=== PATIENT | male | born 1955 | race Caucasian/White ===

== ENCOUNTER → 2017-01-31 | Outpatient (CLI) | payer OTHER ==
[~2017-01-31] MED LIST: ALBUAER2 INH; ALT5 PO; CARV6.252 PO; CLC100 PO; CLOP1TAB15 PO; CPR500 PO; DUTA0.5C PO; FLNIN NAE; LUTE6TAB PO; METH-307 PO; MRLP17 PO; MTR500 PO; MULT-506 PO; NTRSL3 UT; NXM/40 PO; ROSU20TA PO; SILD100T PO; SNG10 PO; SYMIN/8045 INH; TAMS0.4C59 PO; VICODIN PO; ZNTT/150 PO
--- NOTE | 2017-01-31 19:24 | DIAGNOSTIC IMAGING REPORT ---
RIGHT HIP UNILATERAL 2 VIEWS CLINICAL HISTORY: Right hip pain COMPARISON: None. DISCUSSION: There are postsurgical changes are prior right hip arthroplasty. There are small foci of heterotopic ossification superior to the greater trochanter and femoral neck. No acute fractures or dislocations are visualized. No destructive lesions are evident. IMPRESSION: Postsurgical change. No fractures, dislocations, or destructive lesions are visualized Electronically signed by: José Merrill M.D. 01/31/2017 7:23 PM Dictated Date/Time: 01/31/2017 7:22 PM
== END | disposition home or self-care (01) ==
LOC: C.RAD 19:05
PROVIDERS: ATTEND Internal Medicine
DX: M25.551 Pain in right hip (principal)

== ENCOUNTER → 2017-02-15 | Outpatient (CLI) | payer OTHER | END | disposition home or self-care (01) | LOC: C.LABPBG 14:49 | PROVIDERS: ATTEND Orthopaedic Surgery | DX: M25.551 Pain in right hip (principal); Z96.641 Presence of right artificial hip joint ==

== ENCOUNTER → 2017-07-05 | Outpatient (CLI) | payer OTHER | END | disposition home or self-care (01) | LOC: C.LAB1850 15:14 | PROVIDERS: ATTEND Orthopaedic Surgery | DX: M25.551 Pain in right hip (principal) ==

== ENCOUNTER → 2017-07-23 | Outpatient (CLI) | payer OTHER ==
--- NOTE | 2017-07-23 17:48 | DIAGNOSTIC IMAGING REPORT ---
BONE SCAN 3 PHASE LIMITED CLINICAL HISTORY: R HIP PAIN hip pain TECHNIQUE: Multiphase evaluation following the administration of 26 mCi technetium 99m MDP. COMPARISON STUDY: None FINDINGS: The vascular flow component of the study is unremarkable. There are no areas of significant hyperemia. Blood pool images are also unremarkable with activity characteristics similar. Delayed or static images of the pelvis and hips show no abnormal activity characteristics of the right hip prosthetic or surrounding bony structures. There are findings of minimal degenerative activity of the sacroiliac joints. IMPRESSION: Negative study The above report was generated using voice recognition software. It may contain grammatical, syntax or spelling errors. Electronically signed by: Aime Mcfarlane M.D. 07/23/2017 5:46 PM Dictated Date/Time: 07/23/2017 5:44 PM
== END | disposition home or self-care (01) ==
LOC: C.NUCL 12:50
PROVIDERS: ATTEND Orthopaedic Surgery
DX: M25.551 Pain in right hip (principal)

== ENCOUNTER → 2017-09-24 | Outpatient (CLI) | payer OTHER ==
--- NOTE | 2017-09-24 19:55 | DIAGNOSTIC IMAGING REPORT ---
MRI OF THE RIGHT HIP WITHOUT CONTRAST CLINICAL HISTORY: Anterior right hip pain with resisted flexion. COMPARISON STUDY: Pelvis radiograph February 20, 2017 and 3 phase bone scan July 23, 2017. TECHNIQUE: Utilizing a 1.5 Krista magnet and dedicated coil, multiplanar, multiecho imaging of the right hip was performed without intravenous or intraarticular contrast. FINDINGS: Evaluation of the hips is significantly compromised given susceptibility artifact from bilateral hip resurfacing. Evaluation of the adjacent soft tissues is essentially nondiagnostic. No significant marrow edema or suspicious marrow replacement is identified on this examination. There is increased fluid within the bilateral trochanteric bursa, greater on the left. No pelvic lymphadenopathy or pelvic fluid collection is identified on this examination. This extensive sigmoid diverticulosis without evidence for acute diverticulitis by MRI. Musculature adjacent to the hips is unremarkable although suboptimally assessed given artifact. IMPRESSION: 1. Exam significantly compromised by susceptibility artifact from the surgical hardware. 2. Increased fluid within the bilateral trochanteric bursa, greater on the left. No additional abnormalities identified on this exam. Electronically signed by: Manuel Elizalde M.D. 09/24/2017 7:53 PM Dictated Date/Time: 09/24/2017 5:25 PM
== END | disposition home or self-care (01) ==
LOC: C.MRIBC 15:36
PROVIDERS: ATTEND Orthopaedic Surgery
DX: M25.551 Pain in right hip (principal)

== ENCOUNTER → 2017-10-26 | Outpatient (CLI) | payer OTHER | END | disposition home or self-care (01) | LOC: C.LABPBG 14:33 | PROVIDERS: ATTEND Orthopaedic Surgery | DX: Z96.641 Presence of right artificial hip joint (principal) ==

== ENCOUNTER → 2017-11-07 | Outpatient (CLI) | payer OTHER ==
[~2017-11-07] MED LIST changes: +ASPI81TA28 PO; +DOCU-94 PO; +FLNIN/ NAE; +ONDA4TAB65 PO; +PANT40TA2 PO; +POLY335019 PO; +RAMI5CAP PO; +RANI150T85 PO; +ROSU20TA24 PO; +TAMS0.4C38 PO; +VNTHFA/IN INH; -ZNTT/150 PO
--- NOTE | 2017-11-07 18:12 | DIAGNOSTIC IMAGING REPORT ---
MRI OF THE LUMBAR SPINE WITHOUT IV CONTRAST CLINICAL HISTORY: Right lower extremity radiculopathy. COMPARISON STUDY: Radiographs of the lumbar spine dated 02/20/2017. MRI of the lumbar spine dated 03/22/2017. TECHNIQUE: MRI of the lumbar spine is performed utilizing various T1 and T2-weighted sequences in the axial and sagittal planes. IV contrast was not administered for this examination. FINDINGS: Lumbar spine: Vertebral body height is maintained throughout the lumbar spine. Minimal retrolisthesis is seen at L1-L2 and L2-L3. Alignment is otherwise preserved. There is straightening of the lumbar lordosis with mild reversal centered at L2-L3. Anterior osteophytes are seen throughout. The transverse and spinous processes are intact. There is no evidence of spondylolysis. No destructive bony lesion is seen. Advanced chronic degenerative endplate change is seen at L2-L3. Mild degenerative endplate edema is noted at L5-S1. Intervertebral discs: Degenerative disc desiccation and loss of height are seen throughout the lumbar spine. Loss of height is severe at L1-L2 and L2-L3. Loss of height is moderate at the remaining lumbar levels. Spinal cord: The partially imaged spinal cord is normal in morphology and signal intensity. The conus medullaris terminates at the level of L1. The nerve roots of the cauda equina are normal in morphology. L1-L2: There is a broad-based posterior disc bulge. There is no significant acquired compromise of the central canal. The disc bulge is eccentric to the right and causes severe right-sided subarticular stenosis. This may impinge on the exiting right L1 nerve root. There is only mild left-sided subarticular stenosis. The neural foramina are patent. L2-L3: The central canal and neural foramina are patent. Mild facet arthropathy is of no consequence. L3-L4: There is broad-based posterior disc bulge with annular fissure. In conjunction with hypertrophy of the ligamentum flavum, there is mild central canal stenosis at this level. The minimum AP canal diameter measures 8.5 mm. There is bilateral subarticular stenosis. This may impinge on the exiting left L3 nerve root. The disc bulge likely abuts the transiting bilateral nerve roots. Facet arthropathy causes mild left-sided neural foraminal stenosis. L4-L5: There is a small posterior disc bulge with annular fissure eccentric to the right. There is no significant acquired central canal stenosis. There is moderate right-sided subarticular stenosis with possible impingement on the exiting right L4 and the transiting right L5 nerve roots. The disc bulge may abut the transiting left L5 nerve root. Facet arthropathy causes minimal bilateral neural foraminal stenosis. L5-S1: There is a disc bulge eccentric to the right. This causes severe right-sided subarticular stenosis and impinges on the exiting right L5 nerve root. There is mild left-sided subarticular stenosis and this may also abut the exiting left L5 nerve root. There is no significant central canal stenosis. The neural foramina are patent. Sacrum: The visualized sacrum is normal in morphology and signal intensity. Soft tissues: The paraspinous soft tissues are within normal limits. The retroperitoneal structures are grossly normal but incompletely assessed. IMPRESSION: 1. Multilevel lumbosacral spondylosis as above. See discussion for detailed level by level analysis. These findings are overall similar to the 03/22/2017 examination. 2. Degenerative disc disease as above. No destructive bony process is seen. Dictated: 11/07/2017 5:33 PM Transcribed: 11/07/2017 6:12 PM [email or web address] Electronically signed by: Zen Stevens M.D. 11/07/2017 6:43 PM Dictated Date/Time: 11/07/2017 5:33 PM
== END | disposition home or self-care (01) ==
LOC: C.MRI 16:41
PROVIDERS: ATTEND Orthopaedic Surgery
DX: M51.17 Intervertebral disc disorders with radiculopathy, lumbosacral region (principal); Z96.641 Presence of right artificial hip joint

== ENCOUNTER 2017-12-08 20:35 | Inpatient (IN) | payer OTHER ==
[~2017-12-08] VITALS: Ht 177.8 cm; Wt 92.5 kg
[~2017-12-08 20:35] MED LIST changes: -ASPI81TA28 PO; -DOCU-94 PO; -FLNIN/ NAE; -ONDA4TAB65 PO; -PANT40TA2 PO; -POLY335019 PO; -RAMI5CAP PO; -RANI150T85 PO; -ROSU20TA24 PO; -TAMS0.4C38 PO; -VICODIN PO; -VNTHFA/IN INH; +ZNTT/150 PO
[2017-12-08] MEDS ORDERED: ONDANSETRON INJ 2 MG/ML 2 ML VIAL ONE (21:06)
--- NOTE | 2017-12-08 21:16 | EMERGENCY ROOM VISIT NOTE ---
History Report prepared by Isabelle: Guanaco Maldonado Under the Supervision of: Dr. Kim Blackwood D.O. First contact with patient: 20:51 Chief Complaint: VOMITING Stated Complaint: VOMITING, ABD PAIN History of Present Illness The patient is a 62 year old male who presents to the Emergency Room with complaints of a worsening illness that started yesterday. He states that he started with explosive diarrhea that would not stop at times. The patient says he had been dry heaving, but started vomiting "dark green" last night. The patient notes no blood in his vomit or diarrhea. He adds that he has been having constant abdominal pain, and per the patient's , the patient has had a more distended abdomen than usual. The patient denies any fevers, chills, back pain, new urinary symptoms, rashes or sores. He notes no recent sick contacts or travels. No recent change in medications and no change in diet. The patient adds that he had a heart catheterization a week ago, however no stents were placed. The patient notes that his diarrhea has not been nearly as bad today. Source of History: patient, spouse/significant other Onset: Yesterday Position: other (global - illness) Timing: worsening Associated Symptoms: + nausea, + vomiting, + abdominal pain (and distension) , + diarrhea, No fevers, No chills, No back pain, No urinary symptoms (any new) , No rash Review of Systems See HPI for pertinent positives & negatives. A total of 10 systems reviewed and were otherwise negative. Past Medical & Surgical Medical Problems: (1) Diverticulitis of colon with bleeding (2) Pulmonary embolism Surgical Problems: (1) Stented coronary artery Family History Diabetes mellitus Social History Smoking Status: Never Smoker Drug Use: none Marital Status: Housing Status: lives with family Occupation Status: unemployed Current/Historical Medications Scheduled Aspirin (Aspirin Ec), 81 MG PO DAILY Budesonide/Formoterol Fumarate (Symbicort 80/4.5 Inhaler), 3 PUFFS INH DAILY Carvedilol (Coreg), 6.25 MG PO QAM Carvedilol (Coreg), 12.5 MG PO QPM Clopidogrel (Plavix), 75 MG PO QPM Esomeprazole Magnesium (Nexium), 40 MG PO DAILY Fluticasone Propionate (Fluticasone Propionate), 2 SPRAYS [place] DAILY Montelukast Sod (Montelukast Sodium), 10 MG PO DAILY Multivitamin (Multivitamin), 1 TAB PO DAILY Pantoprazole (Pantoprazole Sodium), 40 MG PO DAILY Ramipril (Ramipril), 5 MG PO DAILY Ranitidine (Zantac), 150 MG PO QPM Rosuvastatin Calcium (Rosuvastatin Calcium), 20 MG PO QPM Tamsulosin Hcl (Flomax), 0.4 MG PO DAILY Scheduled PRN Albuterol Hfa (Ventolin Hfa), 2 PUFFS INH Q6H PRN for SOB/Wheezing Docusate Sodium (Colace), 100 MG PO BID PRN for Constipation Methocarbamol (Robaxin), 750 MG PO BID PRN for Muscle Spasm Nitroglycerin (Nitrostat), 0.3 MG UT UD PRN for Chest Pain Polyethylene Glycol 3350 (Miralax), 17 GM PO BID PRN for Constipation Sildenafil Citrate (Viagra), 100 MG PO UD PRN for When Needed [Vicodin 5/500MG], 1.5 TABS PO BID PRN for Pain Allergies Coded Allergies: Meperidine (Verified Allergy, Unknown, NAUSEA AND VOMITING, 03/14/15) Sulfa Drugs (Verified Allergy, Unknown, THROAT SWELLING, 03/14/15) CAN TOLERATE FLOMAX PER PT Tiotropium (Unverified Allergy, Unknown, LARYNGITIS AFTER DRAG SEINER USE, ) Typhoid Vaccines (Verified Allergy, Unknown, fevers, 03/14/15) Physical Exam Vital Signs Date Time Temp Pulse Resp B/P (MAP) Pulse Ox O2 Delivery O2 Flow Rate FiO2 12/09/17 00:00 88 20 129/89 95 Room Air 12/08/17 22:17 36.4 91 20 169/96 95 Room Air 12/08/17 20:39 36.4 119 20 132/88 96 Room Air Physical Exam GENERAL: alert, ill appearing, well nourished, no distress EYE EXAM: normal conjunctiva, PERRL and EOM's grossly intact OROPHARYNX: no exudate, no erythema, lips, buccal mucosa, and tongue normal and mucous membranes are dry NECK: supple, no nuchal rigidity, no adenopathy, non-tender LUNGS: Clear to auscultation. Normal chest wall mechanics HEART: no murmurs, S1 normal and S2 normal ABDOMEN: abdomen mildly distended, mildly tympanitic to percussion, generalized tenderness, normo-active bowel sounds, no masses, no rebound or guarding. BACK: Back is symmetrical on inspection and there is no deformity, no midline tenderness, no CVA tenderness. SKIN: no rashes and no bruising UPPER EXTREMITIES: upper extremities are grossly normal. LOWER EXTREMITIES: No pitting edema. NEURO EXAM: Normal sensorium, cranial nerves II-XII grossly intact, normal speech, no gross weakness of arms, no gross weakness of legs. Medical Decision & Procedures ER Provider Diagnostic Interpretation: Radiology results have been interpreted by the radiologist and reviewed by me. CHEST AND ABDOMEN 2 VIEWS HISTORY: Nausea. Vomiting. Diarrhea. COMPARISON: Chest 11/24/2016. Abdomen and pelvis CT 09/30/2015. FINDINGS: Stable left basilar linear densities suggesting scarring or subsegmental atelectasis. The lungs are otherwise clear. The heart is normal in size. No pleural effusions. No pneumothorax. No renal or ureteral calculi. Postoperative changes within the bilateral hips. There are 2 similar-appearing round densities within the right mid abdomen and right lower quadrant. This could be due to medication ingestion. There is a small amount of residual barium within the right colon demonstrating a few diverticula. A few mildly dilated gas-filled loops of small bowel are seen within the abdomen. There is also gas within the colon. Small bowel loops measure up to 4.3 cm in diameter. Mildly distended gas-filled stomach. No pneumoperitoneum. No pneumatosis. IMPRESSION: 1. No acute process within the chest. 2. Mild distended gas-filled loops of small bowel within the abdomen. There is also gas within the nondistended colon. Therefore, these findings could represent a partial small bowel obstruction or ileus. Electronically signed by: Earl Rodriguez M.D. 12/08/2017 10:34 PM Dictated Date/Time: 12/08/2017 10:[address] abdomen and pelvis: Distended stomach along with dilated loops of proximal/mid small bowel with decompressed distal small bowel concerning for developing small bowel obstruction. Normal-appearing appendix. Colonic diverticulosis. Renal cysts. Lumbar spondylosis with intravertebral osteochondrosis greatest at the L2-3 level. Possible scarring versus atelectasis left lung base. Comparison study dated 09/30/2015 Radiologist: Akbar Heard M.D. Laboratory Results 12/08/17 21:03 Red Blood Count 5.90, Mean Corpuscular Volume 90.7, Mean Corpuscular Hemoglobin 32.0, Mean Corpuscular Hemoglobin Concent 35.3, Mean Platelet Volume 10.9, Neutrophils (%) (Auto) 55.7, Lymphocytes (%) (Auto) 23.1, Monocytes (%) (Auto) 20.8, Eosinophils (%) (Auto) 0.0, Basophils (%) (Auto) 0.1, Neutrophils # (Auto ) 3.80, Lymphocytes # (Auto) 1.58, Monocytes # (Auto) 1.42, Eosinophils # (Auto ) 0.00, Basophils # (Auto) 0.01 12/08/17 21:03 Test 12/08/17 21:03 12/08/17 21:24 12/08/17 21:38 12/08/17 21:41 White Blood Count 6.83 K/uL (4.8-10.8) Red Blood Count 5.90 M/uL (4.7-6.1) Hemoglobin 18.9 g/dL (14.0-18.0) Hematocrit 53.5 % (42-52) Mean Corpuscular Volume 90.7 fL (80-100) Mean Corpuscular Hemoglobin 32.0 pg (25-34) Mean Corpuscular Hemoglobin Concent 35.3 g/dl (32-36) Platelet Count 296 K/uL (130-400) Mean Platelet Volume 10.9 fL (7.4-10.4) Neutrophils (%) (Auto) 55.7 % Lymphocytes (%) (Auto) 23.1 % Monocytes (%) (Auto) 20.8 % Eosinophils (%) (Auto) 0.0 % Basophils (%) (Auto) 0.1 % Neutrophils # (Auto) 3.80 K/uL (1.4-6.5) Lymphocytes # (Auto) 1.58 K/uL (1.2-3.4) Monocytes # (Auto) 1.42 K/uL (0.11-0.59) Eosinophils # (Auto) 0.00 K/uL (0-0.5) Basophils # (Auto) 0.01 K/uL (0-0.2) RDW Standard Deviation 45.7 fL (36.4-46.3) RDW Coefficient of Variation 14.0 % (11.5-14.5) Immature Granulocyte % (Auto) 0.3 % Immature Granulocyte # (Auto) 0.02 K/uL (0.00-0.02) Prothrombin Time 11.1 SECONDS (9.0-12.0) Prothromb Time International Ratio 1.1 (0.9-1.1) Anion Gap 11.0 mmol/L (3-11) Estimated GFR () 31.1 Estimated GFR (Non- 26.8 BUN/Creatinine Ratio 13.9 (10-20) Calcium Level 10.6 mg/dl (8.5-10.1) Magnesium Level 1.9 mg/dl (1.8-2.4) Total Bilirubin 0.7 mg/dl (0.2-1) Aspartate Amino Transf (AST/SGOT) 25 U/L (15-37) Alanine Aminotransferase (ALT/SGPT) 35 U/L (12-78) Alkaline Phosphatase 95 U/L (45-117) Total Protein 9.9 gm/dl (6.4-8.2) Albumin 4.8 gm/dl (3.4-5.0) Globulin 5.1 gm/dl (2.5-4.0) Albumin/Globulin Ratio 0.9 (0.9-2) Lipase 81 U/L (73-393) Urine Color DK YELLOW Urine Appearance CLOUDY (CLEAR) Urine pH 5.0 (4.5-7.5) Urine Specific [place] 1.029 (1.000-1.030) Urine Protein 2+ (NEG) Urine Glucose (UA) TRACE (NEG) Urine Ketones TRACE (NEG) Urine Occult Blood NEG (NEG) Urine Nitrite NEG (NEG) Urine Bilirubin NEG (NEG) Urine Urobilinogen NEG (NEG) Urine Leukocyte Esterase TRACE (NEG) Urine WBC (Auto) 1-5 /hpf (0-5) Urine RBC (Auto) 0-4 /hpf (0-4) Urine Hyaline Casts (Auto) >30 /lpf (0-5) Urine Epithelial Cells (Auto) >30 /lpf (0-5) Urine Bacteria (Auto) NEG (NEG) Urine Crystals CALCIUM OXALATE (NONE Urine Pathogenic Casts /lpf (0) Urine Mucus PRESENT (NONE PRSENT) Influenza Type A (RT-PCR) Neg for Influ A (NEG) Influenza Type B (RT-PCR) Neg for Influ B (NEG) Bedside Lactic Acid Venous 2.88 mmol/L (0.90-1.70) Date/Time Source Procedure Growth Status 12/09/17 01:06 Stool C.difficile Toxin B Gene (PCR) - Final No C. difficile toxin B gene detected Complete Laboratory results per my review. Medications Administered Medications (Trade) Dose Ordered Sig/Anjel Route Start Time Stop Time Status Last Admin Dose Admin Ondansetron HCl (Zofran Inj) 4 mg STK-MED ONCE .ROUTE 12/08/17 21:06 12/08/17 21:07 DC 12/08/17 21:09 4 MG Sodium Chloride 1,000 ml @ 999 mls/hr Q1H1M STAT IV 12/08/17 21:21 12/08/17 22:21 DC 12/08/17 21:45 999 MLS/HR Ondansetron HCl (Zofran Inj) 4 mg NOW STAT IV 12/08/17 22:37 12/08/17 22:38 DC 12/08/17 22:48 4 MG Sodium Chloride 1,000 ml @ 999 mls/hr Q1H1M STAT IV 12/08/17 22:38 12/08/17 23:38 DC 12/08/17 22:48 999 MLS/HR ECG Indication: vomiting Rate (beats per minute): 92 Rhythm: normal sinus Findings: no acute ischemic change, other (normal axis, normal intervals) ED Course 2106: The patient was evaluated in room B6. A complete history and physical exam was performed. 2120: Ordered NSS 1000 ml @ 999 mls/hr IV. 2236: Ordered Zofran Inj 4 mg IV. 2241: I reevaluated and updated the patient. 2340: Discussed with [facility] resident, Dr. Claudio for admission. Awaiting gen surg call back. Medical Decision Differential diagnosis: Etiologies such as gastroenteritis, food borne illness, infections, appendicitis , diverticulitis, inflammatory bowel disease, obstruction, GI bleed, biliary pathology, as well as others were entertained. Patient appeared clinically dehydrated here, and likely acute renal failure secondary to dehydration from diarrhea and vomiting over the last 2 days. Patient given IV fluids here, and urine pending at the time of admission. Stool sample was obtained and sent for culture as a precaution. Initial x-ray imaging and follow-up CAT scan didn suggest possible early partial small bowel obstruction. Case was discussed with general surgery, Dr. Kelly, in addition to [facility] physician group for additional evaluation and treatment. No evidence of bacteremia/sepsis. Patient did state he felt mildly improved with IV fluids and antinausea medication. Vital signs otherwise stable. Medication Reconcilliation Current Medication List: was personally reviewed by me Blood Pressure Screening Patient's blood pressure: Elevated blood pressure Blood pressure disposition: Elevated BP felt to be situational Consults Time Called: [phone] Consulting Physician: Dr. Kelly Returned Call: [phone] Kelly. He will see in consult in the morning. States no NG tube needed unless patient has recurrent vomiting. Impression Primary Impression: Small bowel obstruction Additional Impressions: Vomiting and diarrhea Acute renal failure Dehydration Scribe Attestation The scribe's documentation has been prepared under my direction and personally reviewed by me in its entirety. I confirm that the note above accurately reflects all work, treatment, procedures, and medical decision making performed by me. Departure Information Referrals Pro,Leroy Mak M.D. (PCP) Patient Instructions My [facility] Problem Qualifiers Additional Impressions: Acute renal failure Acute renal failure type: unspecified Qualified Codes: N17.9 - Acute kidney failure, unspecified
[2017-12-08] MEDS ORDERED: SODIUM CHLORIDE 0.9% 1000ML 1,000 ML IV STA ×2 (21:21→22:38)
[2017-12-08] MEDS ORDERED: VICODIN PO (21:23)
[2017-12-08 21:29] LABS: BASO % 0.1 %; BASO ABS # 0.01 K/uL (0-0.2); HEMATOCRIT 53.5 % (42-52); HEMOGLOBIN 18.9 g/dL (14.0-18.0); IG# 0.02 K/uL (0.00-0.02); LYMPH % 23.1 %; LYMPH ABS # 1.58 K/uL (1.2-3.4); MEAN CELL VOLUME 90.7 fL (80-100); MEAN CORPUSCULAR HGB CONC 35.3 g/dl (32-36); MEAN PLATELET VOLUME 10.9 fL (7.4-10.4); MONO % 20.8 %; MONO ABS # 1.42 K/uL (0.11-0.59); NEUT % 55.7 %; PLATELET COUNT 296 K/uL (130-400); RED CELL DISTRIBUTION WIDTH SD 45.7 fL (36.4-46.3); WHITE BLOOD COUNT 6.83 K/uL (4.8-10.8)
[2017-12-08 21:39] LABS: INR 1.1 (0.9-1.1)
[2017-12-08] MEDS ORDERED: SNG10 PO (21:48)
[2017-12-08] MEDS ORDERED: RAMI5CAP PO (21:48)
[2017-12-08] MEDS ORDERED: PANT40TA2 PO (21:48)
[2017-12-08] MEDS ORDERED: ROSU20TA33 PO (21:48)
[2017-12-08] MEDS ORDERED: FLNIN/ NAE (21:48)
[2017-12-08 21:49] LABS: ALBUMIN 4.8 gm/dl (3.4-5.0); ALT/SGPT 35 U/L (12-78); BLOOD UREA NITROGEN 34 mg/dl (7-18); CALCIUM 10.6 mg/dl (8.5-10.1); CARBON DIOXIDE 25 mmol/L (21-32); CREATININE 2.45 mg/dl (0.60-1.40); GLUCOSE 146 mg/dl (70-99); LIPASE 81 U/L (73-393); POTASSIUM 3.8 mmol/L (3.5-5.1); SODIUM 133 mmol/L (136-145)
[2017-12-08 21:52] LABS: ALKALINE PHOSPHATASE 95 U/L (45-117); AST/SGOT 25 U/L (15-37); TOTAL PROTEIN 9.9 gm/dl (6.4-8.2)
[2017-12-08] MEDS ORDERED: VNTHFA/IN INH (22:03)
[2017-12-08] MEDS ORDERED: POLY335019 PO (22:03)
[2017-12-08] MEDS ORDERED: TAMS0.4C38 PO (22:03)
[2017-12-08] MEDS ORDERED: DOCU-94 PO (22:03)
[2017-12-08] MEDS ORDERED: ASPI81TA28 PO (22:04)
--- NOTE | 2017-12-08 22:35 | DIAGNOSTIC IMAGING REPORT ---
CHEST AND ABDOMEN 2 VIEWS HISTORY: Nausea. Vomiting. Diarrhea. COMPARISON: Chest 11/24/2016. Abdomen and pelvis CT 09/30/2015. FINDINGS: Stable left basilar linear densities suggesting scarring or subsegmental atelectasis. The lungs are otherwise clear. The heart is normal in size. No pleural effusions. No pneumothorax. No renal or ureteral calculi. Postoperative changes within the bilateral hips. There are 2 similar-appearing round densities within the right mid abdomen and right lower quadrant. This could be due to medication ingestion. There is a small amount of residual barium within the right colon demonstrating a few diverticula. A few mildly dilated gas-filled loops of small bowel are seen within the abdomen. There is also gas within the colon. Small bowel loops measure up to 4.3 cm in diameter. Mildly distended gas-filled stomach. No pneumoperitoneum. No pneumatosis. IMPRESSION: 1. No acute process within the chest. 2. Mild distended gas-filled loops of small bowel within the abdomen. There is also gas within the nondistended colon. Therefore, these findings could represent a partial small bowel obstruction or ileus. Electronically signed by: Earl Rodriguez M.D. 12/08/2017 10:34 PM Dictated Date/Time: 12/08/2017 10:30 PM
[2017-12-08] MEDS ORDERED: ONDANSETRON INJ 2 MG/ML 2 ML VIAL IV STA (22:37)
[2017-12-08 22:46] LABS: INFLUENZA A PCR Neg for Influ A (NEG); INFLUENZA B PCR Neg for Influ B (NEG)
[2017-12-09] MEDS ORDERED: ALBUTEROL HFA 8 GM INHALER INH PRN (01:15)
[2017-12-09] MEDS ORDERED: ONDANSETRON INJ 2 MG/ML 2 ML VIAL IV PRN (01:15)
[2017-12-09] MEDS ORDERED: POLYETHYLENE (MIRALAX) 17 GM PACK PO PRN (01:15)
[2017-12-09] MEDS ORDERED: MAGNESIUM HYDROXIDE SUSP 30 ML UDC PO PRN (01:15)
--- NOTE | 2017-12-09 01:25 | History and Physical ---
History & Physical Date & Time of Service: Dec 09, 2017 at 01:11 Chief Complaint: Vomiting, Abd Pain Primary Care Physician: Leroy Bruce M.D. History of Present Illness Source: patient, family 62-year-old male with past medical history of coronary artery disease status post 9 stents, PE, GERD, asthma, diverticulosis presented to the ER with complaints of persistent nausea, vomiting and abdominal distention. The patient stated that he has had explosive diarrhea beginning Sunday morning which lasted until that evening and resolved. He had about 10-20 episodes of brownish loose stool. Later that evening he started to vomit greenish bile which persisted. Denies any blood in his stool or vomit. Complains of abdominal distention and discomfort. Denies any fevers or chills, any recent travel or eating any unusual food or exposure to sick contacts. Denies any recent antibiotic use except for about 4 tablets of amoxicillin prior to dental procedure. Past Medical/Surgical History Medical Problems: (1) Diverticulitis of colon with bleeding Status: Chronic (2) Pulmonary embolism Status: Resolved Surgical Problems: (1) Stented coronary artery Status: Chronic Family History Diabetes mellitus Social History Smoking Status: Never Smoker Smokeless Tobacco Use: No Alcohol Use: none Drug Use: none Marital Status: Housing status: lives with significant other Occupational Status: unemployed Immunizations History of Influenza Vaccine: Yes History of Tetanus Vaccine?: Yes History of Pneumococcal: Yes History of Hepatitis B Vaccine: No Multi-Drug Resistant Organisms History of MDRO: No Allergies Coded Allergies: Meperidine (Verified Allergy, Unknown, NAUSEA AND VOMITING, 03/14/15) Sulfa Drugs (Verified Allergy, Unknown, THROAT SWELLING, 03/14/15) CAN TOLERATE FLOMAX PER PT Tiotropium (Unverified Allergy, Unknown, LARYNGITIS AFTER USP USE, ) Typhoid Vaccines (Verified Allergy, Unknown, fevers, 03/14/15) Home Medications Scheduled Aspirin (Aspirin Ec), 81 MG PO DAILY Budesonide/Formoterol Fumarate (Symbicort 80/4.5 Inhaler), 3 PUFFS INH DAILY Carvedilol (Coreg), 6.25 MG PO QAM Carvedilol (Coreg), 12.5 MG PO QPM Clopidogrel (Plavix), 75 MG PO QPM Esomeprazole Magnesium (Nexium), 40 MG PO DAILY Fluticasone Propionate (Fluticasone Propionate), 2 SPRAYS [place] DAILY Montelukast Sod (Montelukast Sodium), 10 MG PO DAILY Multivitamin (Multivitamin), 1 TAB PO DAILY Pantoprazole (Pantoprazole Sodium), 40 MG PO DAILY Ramipril (Ramipril), 5 MG PO DAILY Ranitidine (Zantac), 150 MG PO QPM Rosuvastatin Calcium (Rosuvastatin Calcium), 20 MG PO QPM Tamsulosin Hcl (Flomax), 0.4 MG PO DAILY Scheduled PRN Albuterol Hfa (Ventolin Hfa), 2 PUFFS INH Q6H PRN for SOB/Wheezing Docusate Sodium (Colace), 100 MG PO BID PRN for Constipation Methocarbamol (Robaxin), 750 MG PO BID PRN for Muscle Spasm Nitroglycerin (Nitrostat), 0.3 MG UT UD PRN for Chest Pain Polyethylene Glycol 3350 (Miralax), 17 GM PO BID PRN for Constipation Sildenafil Citrate (Viagra), 100 MG PO UD PRN for When Needed [Vicodin 5/500MG], 1.5 TABS PO BID PRN for Pain Review of Systems Constitutional: No fever, No chills Eyes: No worsening of vision ENT: No hearing loss Respiratory: No cough, No sputum Cardiovascular: No chest pain Abdomen: + nausea, + vomiting, + diarrhea, + problem reported (abdominal distension and discomfort) Genitourinary - Male: No hematuria, No dysuria Neurologic: No memory loss, No paralysis Psychiatric: No depression symptoms Endocrine: No fatigue Hematologic / Lymphatic: No abnormal bleeding/bruising Integumentary: No rash Physical Exam Vital Signs Date Time Temp Pulse Resp B/P (MAP) Pulse Ox O2 Delivery O2 Flow Rate FiO2 12/09/17 00:00 88 20 129/89 95 Room Air 12/08/17 22:17 36.4 91 20 169/96 95 Room Air 12/08/17 20:39 36.4 119 20 132/88 96 Room Air General Appearance: WD/WN, no apparent distress Head: normocephalic ENT: normal ENT inspection, hearing grossly normal, + pertinent finding (dry oral mucosa) Neck: supple Respiratory/Chest: chest non-tender, lungs clear, normal breath sounds, no respiratory distress, no accessory muscle use Cardiovascular: regular rate, rhythm Abdomen/GI: soft, + abnormal bowel sounds, + distended Back: normal range of motion Extremities/Musculoskelatal: no pedal edema Neurologic/Psych: alert, normal mood/affect, oriented x 3 Diagnostics Laboratory Results Results Past 24 Hours Test 12/08/17 21:03 12/08/17 21:24 12/08/17 21:38 12/08/17 21:41 Range/Units White Blood Count 6.83 4.8-10.8 K/uL Red Blood Count 5.90 4.7-6.1 M/uL Hemoglobin 18.9 14.0-18.0 g/dL Hematocrit 53.5 42-52 % Mean Corpuscular Volume 90.7 80-100 fL Mean Corpuscular Hemoglobin 32.0 25-34 pg Mean Corpuscular Hemoglobin Concent 35.3 32-36 g/dl Platelet Count 296 130-400 K/uL Mean Platelet Volume 10.9 7.4-10.4 fL Neutrophils (%) (Auto) 55.7 % Lymphocytes (%) (Auto) 23.1 % Monocytes (%) (Auto) 20.8 % Eosinophils (%) (Auto) 0.0 % Basophils (%) (Auto) 0.1 % Neutrophils # (Auto) 3.80 1.4-6.5 K/uL Lymphocytes # (Auto) 1.58 1.2-3.4 K/uL Monocytes # (Auto) 1.42 0.11-0.59 K/uL Eosinophils # (Auto) 0.00 0-0.5 K/uL Basophils # (Auto) 0.01 0-0.2 K/uL RDW Standard Deviation 45.7 36.4-46.3 fL RDW Coefficient of Variation 14.0 11.5-14.5 % Immature Granulocyte % (Auto) 0.3 % Immature Granulocyte # (Auto) 0.02 0.00-0.02 K/uL Prothrombin Time 11.1 9.0-12.0 SECONDS Prothromb Time International Ratio 1.1 0.9-1.1 Sodium Level 133 136-145 mmol/L Potassium Level 3.8 3.5-5.1 mmol/L Chloride Level 97 98-107 mmol/L Carbon Dioxide Level 25 21-32 mmol/L Anion Gap 11.0 3-11 mmol/L Blood Urea Nitrogen 34 7-18 mg/dl Creatinine 2.45 0.60-1.40 mg/dl Estimated GFR () 31.1 Estimated GFR (Non- 26.8 BUN/Creatinine Ratio 13.9 10-20 Random Glucose 146 70-99 mg/dl Calcium Level 10.6 8.5-10.1 mg/dl Magnesium Level 1.9 1.8-2.4 mg/dl Total Bilirubin 0.7 0.2-1 mg/dl Aspartate Amino Transf (AST/SGOT) 25 15-37 U/L Alanine Aminotransferase (ALT/SGPT) 35 12-78 U/L Alkaline Phosphatase 95 45-117 U/L Total Protein 9.9 6.4-8.2 gm/dl Albumin 4.8 3.4-5.0 gm/dl Globulin 5.1 2.5-4.0 gm/dl Albumin/Globulin Ratio 0.9 0.9-2 Lipase 81 73-393 U/L Urine Color DK YELLOW Urine Appearance CLOUDY CLEAR Urine pH 5.0 4.5-7.5 Urine Specific [place] 1.029 1.000-1.030 Urine Protein 2+ NEG Urine Glucose (UA) TRACE NEG Urine Ketones TRACE NEG Urine Occult Blood NEG NEG Urine Nitrite NEG NEG Urine Bilirubin NEG NEG Urine Urobilinogen NEG NEG Urine Leukocyte Esterase TRACE NEG Urine WBC (Auto) 1-5 0-5 /hpf Urine RBC (Auto) 0-4 0-4 /hpf Urine Hyaline Casts (Auto) >30 0-5 /lpf Urine Epithelial Cells (Auto) >30 0-5 /lpf Urine Bacteria (Auto) NEG NEG Urine Crystals CALCIUM OXALATE NONE PRSENT Urine Pathogenic Casts 0 /lpf Urine Mucus PRESENT NONE PRSENT Influenza Type A (RT-PCR) Neg for Influ A NEG Influenza Type B (RT-PCR) Neg for Influ B NEG Bedside Lactic Acid Venous 2.88 0.90-1.70 mmol/L Microbiology Results 12/08/17 C.difficile Toxin B Gene (PCR), Reagan Batch Pending 12/08/17 Shiga Toxin Test, Reagan Batch Pending 12/08/17 Stool Culture, Reagan Batch Pending Diagnostic Radiology [~ rep ct add3]] CHEST AND ABDOMEN 2 VIEWS HISTORY: Nausea. Vomiting. Diarrhea. COMPARISON: Chest 11/24/2016. Abdomen and pelvis CT 09/30/2015. FINDINGS: Stable left basilar linear densities suggesting scarring or subsegmental atelectasis. The lungs are otherwise clear. The heart is normal in size. No pleural effusions. No pneumothorax. No renal or ureteral calculi. Postoperative changes within the bilateral hips. There are 2 similar-appearing round densities within the right mid abdomen and right lower quadrant. This could be due to medication ingestion. There is a small amount of residual barium within the right colon demonstrating a few diverticula. A few mildly dilated gas-filled loops of small bowel are seen within the abdomen. There is also gas within the colon. Small bowel loops measure up to 4.3 cm in diameter. Mildly distended gas-filled stomach. No pneumoperitoneum. No pneumatosis. IMPRESSION: 1. No acute process within the chest. 2. Mild distended gas-filled loops of small bowel within the abdomen. There is also gas within the nondistended colon. Therefore, these findings could represent a partial small bowel obstruction or ileus. CT abdomen and pelvis read by [facility] Distended stomach along with dilated loops of proximal/mid small bowel with decompressed distal small bowel concerning for developing small bowel obstruction. Normal appearing appendix. Colonic diverticulosis. Renal service. Lumbar spondylosis with intervertebral osteochondrosis greatest at the L2-3 level. Possible scarring versus atelectasis left lung base. Impression Assessment and Plan 62-year-old male with past medical history of coronary artery disease status post 9 stents, PE, GERD, asthma, diverticulosis presented to the ER with complaints of persistent nausea, vomiting and abdominal distention. Abdominal distention secondary to small bowel obstruction: - KUB and CT abdomen and pelvis suggestive of small bowel obstruction - Nothing by mouth - Zofran as needed for nausea/vomiting and morphine as needed for pain - Gen. surgery consult Renal insufficiency: - Likely secondary to dehydration from vomiting, diarrhea and decreased by mouth intake - Creatinine elevated at 2.4 - Continue IV fluids and monitor creatinine Coronary artery disease status post stents - Continue Coreg, aspirin and Plavix, ramipril Hyperlipidemia - Continue rosuvastatin Asthma/COPD : -Continue Symbicort Recurrent sinusitis: - Continue Flonase and Singulair GERD: - Continue Protonix, Nexium, Zantac BPH: -Continue Flomax DVT prophylaxis: Heparin subcutaneous Full code Disposition: Admitted to [facility] Attending addendum: I have physically seen this patient, have supervised the medical residents activities, and agree with the H&P unless as otherwise noted. Assessment and Plan: Small bowel obstruction-- Nothing by mouth except essential medications Zofran 4 mg IV every 6 hours when necessary Famotidine 20 mg IV every 12 hours Zosyn 3.375 mg IV every 8 hours Acute kidney injury-- Creatinine 2.45 on entrance laboratories Continue rehydration with NSS Repeat BMP and magnesium level in the a.m. CAD/hypertension-- Continue Coreg and ramipril Hold aspirin and Plavix for now in case surgery is needed Level of Care Med/Surg Advanced Directives Existing Advance Directive: No Existing Living Will: No Existing Power of Water Safety Teacher: No Resuscitation Status FULL RESUSCITATION VTE Prophylaxis VTE Risk Assessment Done? Y/N: Yes Risk Level: Moderate Given or contraindicated: Unfractionated heparin SQ Social Service Consult None Apply Resident Tracking Resident Involvement: Resident Care Provided Care Provided: Adult Hospital Medicine
[2017-12-09 01:45] VITALS: BP 144/97; PULSE 102; TEMP 36.5; O2SAT 94; Ht 177.8 cm; Wt 92.5 kg
[2017-12-09] MEDS ORDERED: PROMETHAZINE HCL INJ 12.5 MG in SODIUM CHLORIDE 0.9% 50ML 50 ML IV STA (02:18)
[2017-12-09] MEDS: SODIUM CHLORIDE 0.9% 1000ML 1,000 ML IV SCH ×3 (03:23→22:33)
[2017-12-09] MEDS ORDERED: PIPERACILL/TAZOBAC IV 3.375 GM in DEXTROSE 5% 100ML IV ONE (05:00)
[2017-12-09] MEDS ORDERED: PIPERACILL/TAZOBAC CONSULT ACTIVE PRN (05:00)
[2017-12-09] MEDS ORDERED: FAMOTIDINE IV INJ 20 MG in DEXTROSE 5% 100ML 100 ML IV SCH (05:00)
[2017-12-09] MEDS: HEPARIN SOD 5000 UNIT/0.5 ML CARP SQ SCH ×3 (06:23→21:49)
[2017-12-09] MEDS: FAMOTIDINE IV INJ 20 MG in SYRINGE 3 ML IV SCH ×2 (06:23→18:01)
--- NOTE | 2017-12-09 06:49 | DIAGNOSTIC IMAGING REPORT ---
CT OF THE ABDOMEN AND PELVIS WITHOUT CONTRAST CLINICAL HISTORY: Nausea, vomiting, abdominal pain and diarrhea. COMPARISON STUDY: CT of the abdomen and pelvis September 30, 2015. TECHNIQUE: Axial images of the abdomen and pelvis were obtained without IV contrast. Images were reviewed in the axial, sagittal, and coronal planes. A dose lowering technique was utilized adhering to the principles of ALARA. FINDINGS: The heart is moderately enlarged. Left basilar opacity suggests atelectasis. No pneumatosis, free air or portal venous gas is present. Unenhanced images of liver, spleen, adrenal glands and pancreas are unremarkable. There is no biliary or pancreatic ductal dilatation. Several water attenuation bilateral renal lesions are shown to reflect cysts on prior contrast enhanced study of September 30, 2015. The stomach is moderately distended and fluid-filled as is the proximal to mid small bowel. There is a probable transition point within the right lower quadrant shown on image 299. This is within the ileum. The distal small bowel is decompressed. The findings suggest a partial small bowel obstruction. There is colonic diverticulosis without evidence for acute diverticulitis although images of the pelvis are degraded by streak artifact from bilateral hip arthroplasties. There is no lymphadenopathy. Several suspected ingested tablets are noted. IMPRESSION: 1. Moderate dilatation of the stomach and proximal to mid small bowel with decompressed distal small bowel and suspected transition point within the right lower quadrant within the ileum. The findings suggest a partial small bowel obstruction. No pneumatosis, free air or portal venous gas. 2. Multiple bilateral renal cysts. 3. Colonic diverticulosis without evidence for acute diverticulitis. Electronically signed by: Manuel Elizalde M.D. 12/09/2017 6:48 AM Dictated Date/Time: 12/09/2017 6:41 AM
[2017-12-09 07:32] VITALS: BP 132/76; PULSE 97; TEMP 36.9; O2SAT 95
[2017-12-09] MEDS ORDERED: PIPERACILL/TAZOBAC IV 3.375 GM in DEXTROSE 5% 100ML 100 ML IV SCH (09:00)
[2017-12-09] MEDS ORDERED: NON-FORMULARY MEDICATION (Esomeprazole Magnesium (Nexium) 40 MG) PO SCH (09:00)
[2017-12-09] MEDS ORDERED: ENALAPRIL MALEATE 5 MG TAB PO SCH (09:00)
[2017-12-09] MEDS ORDERED: MONTELUKAST SOD 10 MG TAB PO SCH (09:00)
[2017-12-09] MEDS ORDERED: ASPIRIN 81 MG ECTAB PO SCH (09:00)
[2017-12-09] MEDS ORDERED: PANTOprazole SOD 40 MG TAB PO SCH (09:00)
[2017-12-09] MEDS: PIPERACILL/TAZOBAC IV 3.375 GM in DEXTROSE 5% 100ML IV SCH ×2 (09:38→18:01)
[2017-12-09] MEDS: CARVEDILOL 6.25 MG TAB PO SCH ×2 (09:43→21:13)
[2017-12-09] MEDS: FLUTICASONE PROPIONATE NA SPR 16 GM BTL NAE SCH (09:43)
[2017-12-09] MEDS: TAMSULOSIN HCL 0.4 MG CAP PO SCH (09:43)
[2017-12-09] MEDS: BUDESONIDE/FORMOTEROL FUMARATE 80/4.5 60 PUFFS/INHALER INH SCH (09:43)
[2017-12-09 15:26] VITALS: BP 125/73; PULSE 79; TEMP 36.7; O2SAT 95
[2017-12-09 15:35] VITALS: O2SAT 95
--- NOTE | 2017-12-09 16:22 | Progress Note ---
Progress Note Date of Service Dec 09, 2017. Progress Note follow up, patient admitted after midnight feeling a little better, two very small, liquid BM this AM, no nausea or vomiting admitted to explosive diarrhea two days ago had vomiting or dry heaves about 40 times by his count, has subsided no one sick around him he cannot remember eating undercooked meat or chicken 62-year-old male with past medical history of coronary artery disease status post 9 stents, PE, GERD, asthma, diverticulosis presented to the ER with complaints of persistent nausea, vomiting and abdominal distention. Abdominal distention secondary to small bowel obstruction: - KUB and CT abdomen and pelvis suggestive of small bowel obstruction - Nothing by mouth - Zofran as needed for nausea/vomiting and morphine as needed for pain - examines more like an ileus with very hypoactive bowel sounds - encouraged him to ambulate in the halls - antibiotics started, would only continue for 48 hours, no clear sings of infection Renal insufficiency: - Likely secondary to dehydration from vomiting, diarrhea and decreased by mouth intake - Creatinine elevated at 2.4 - continue IV fluids - repeat labs tomorrow, making urine today Coronary artery disease status post stents - Continue Coreg, hold aspirin and Plavix in case surgery required Hyperlipidemia Asthma/COPD : -Continue Symbicort Recurrent sinusitis: - Continue Flonase and Singulair GERD: BPH: DVT prophylaxis: Heparin subcutaneous Full code
[2017-12-09] MEDS ORDERED: RANITIDINE HCL 150 MG TAB PO SCH (21:00)
[2017-12-09] MEDS ORDERED: ROSUVASTATIN CALCIUM 20 MG TAB PO SCH (21:00)
[2017-12-09] MEDS ORDERED: CLOPIDOGREL BISULFATE 75 MG TAB PO SCH (21:00)
[2017-12-09 23:15] VITALS: BP 148/90; PULSE 73; TEMP 36.8; O2SAT 98
[2017-12-10] MEDS: PIPERACILL/TAZOBAC IV 3.375 GM in DEXTROSE 5% 100ML IV SCH ×2 (02:09→10:19)
[2017-12-10] MEDS: HEPARIN SOD 5000 UNIT/0.5 ML CARP SQ SCH ×3 (05:38→21:59)
[2017-12-10] MEDS: FAMOTIDINE IV INJ 20 MG in SYRINGE 3 ML IV SCH (05:38)
[2017-12-10 07:31] VITALS: BP 143/74; PULSE 73; TEMP 37; O2SAT 92
[2017-12-10 07:37] LABS: BASO % 0.6 %; BASO ABS # 0.03 K/uL (0-0.2); EOS % 4.3 %; EOS ABS # 0.23 K/uL (0-0.5); HEMATOCRIT 39.4 % (42-52); HEMOGLOBIN 13.8 g/dL (14.0-18.0); LYMPH % 29.3 %; LYMPH ABS # 1.58 K/uL (1.2-3.4); MEAN CELL VOLUME 90.6 fL (80-100); MEAN CORPUSCULAR HEMOGLOBIN 31.7 pg (25-34); MEAN PLATELET VOLUME 10.5 fL (7.4-10.4); MONO % 15.9 %; MONO ABS # 0.86 K/uL (0.11-0.59); NEUT % 49.9 %; PLATELET COUNT 181 K/uL (130-400); RED CELL DISTRIBUTION WIDTH CV 13.6 % (11.5-14.5); RED CELL DISTRIBUTION WIDTH SD 45.2 fL (36.4-46.3)
[2017-12-10 07:52] LABS: CALCIUM 8.4 mg/dl (8.5-10.1); CREATININE 0.76 mg/dl (0.60-1.40); POTASSIUM 3.3 mmol/L (3.5-5.1)
--- NOTE | 2017-12-10 07:59 | SURGICAL CONSULTATION ---
DATE OF CONSULTATION: 12/09/2017 HISTORY OF PRESENT ILLNESS: I have been asked by Dr. Claudio to see this 62-year-old male who presented to the Emergency Room after a 2-day history of nausea, vomiting, and diarrhea. The patient states that he awoke on Sunday morning at 6:00 a.m. and felt that he needed to have a bowel movement. There was a little bit of form to that bowel movement; however, over the next 6 hours he had multiple bowel movements, all of which were profuse and watery. There was no blood or melena. The diarrhea seemed to stop then, however, later on in the day, he began to develop nausea and had multiple episodes of vomiting for bilious green material. He was unable to keep anything down and that every time he would even take a sip of water, it would induce vomiting. This continued throughout the day and he presented to the Emergency Room last night. He had some vomiting in the Emergency Room. He had 2 bowel movements while in the Emergency Room and has had 1 bowel movement today, it was watery. He had significant abdominal distention, which is markedly decreased today. He had food poisoning once in the past that was not this severe. He does not think this was food poisoning and that he did not eat anything unusual and his had the same meal as he did prior to the onset of the symptoms. He had no fever with this. His previous abdominal surgery includes only 3 right inguinal hernias and a left inguinal hernia repair. PAST MEDICAL HISTORY: [place] with significant coronary artery disease and he has had 9 stents placed. He has had diverticulitis of the colon. He has had pulmonary embolism. He has asthma. PAST SURGICAL HISTORY: Includes 3 right inguinal hernia repairs, 1 left inguinal hernia repair, a right knee arthroscopy, a left ulnar nerve release. He has had 2 nasal sinus surgeries. MEDICATIONS AT HOME: Include aspirin, Plavix, Coreg, Symbicort, Nexium, fluticasone, multivitamin, pantoprazole, ramipril, Zantac, Rosuvastatin, and Flomax. ALLERGIES: MEPERIDINE, SULFA, TIOTROPIUM, and TYPHOID VACCINE. SOCIAL HISTORY: He does not smoke or chew tobacco, and drinks alcohol very occasionally. PHYSICAL EXAMINATION: GENERAL: Reveals a well-developed, well-nourished male who is lying in his bed and appears comfortable. HEENT: Reveals the sclerae to be anicteric. Mucous membranes are moist. NECK: Supple, with no adenopathy. BACK: No spinal or CVA tenderness. LUNGS: Clear. HEART: Regular. ABDOMEN: Mildly distended but is soft and is not tender. He has bowel sounds that are present but decreased. There are no high pitched sounds and there were no rushes. EXTREMITIES: Reveal no edema. LABORATORY DATA: WBC 6.83, H&H is 18.9 and 53.5, platelet count 296,000. Sodium 133, potassium 3.8, chloride 97, CO2 25, BUN 34, creatinine 2.45, glucose 146, lactic acid 2.88, total bilirubin 0.7, AST 25, ALT 35, alkaline phosphatase 95%, lipase is 81. CT scan of the abdomen and pelvis showed moderate dilatation of the stomach in proximal to mid small bowel with decompressed distal small bowel with suspected transition point within the right lower quadrant within the ileum to suggest partial small bowel obstruction. There was no pneumatosis, free air or portal venous gas. ASSESSMENT AND PLAN: This patient had nausea, vomiting, and diarrhea, all of which was profuse. These started with the diarrhea which would be more suggestive of either food poisoning or viral illness. The CT scan is noted. He is having bowel movements and now passing flatus. I do not feel that there is any need for immediate surgical intervention. He is undergoing rehydration, which is the most likely etiology for his elevated creatinine. Hopefully, this will resolve without surgical intervention considering the fact that he is on Plavix and aspirin. We will continue to follow with you. Thank you for allowing me to see this patient and participate in his care.
[2017-12-10] MEDS ORDERED: POTASSIUM CHLORIDE 10 MEQ TABCR PO STA (08:06)
[2017-12-10] MEDS ORDERED: MAGNESIUM SULFATE 1GM / D5W 1 GM in PREMIXED IN D5W 100 ML IV STA (08:10)
[2017-12-10] MEDS: SODIUM CHLORIDE 0.9% 1000ML 1,000 ML IV SCH (08:41)
[2017-12-10] MEDS: MAGNESIUM OXIDE 400 MG TAB PO SCH ×2 (09:03→20:52)
[2017-12-10] MEDS: CARVEDILOL 6.25 MG TAB PO SCH ×2 (09:04→20:51)
[2017-12-10] MEDS: TAMSULOSIN HCL 0.4 MG CAP PO SCH (09:04)
[2017-12-10] MEDS: FLUTICASONE PROPIONATE NA SPR 16 GM BTL NAE SCH (09:06)
[2017-12-10] MEDS: BUDESONIDE/FORMOTEROL FUMARATE 80/4.5 60 PUFFS/INHALER INH SCH (09:06)
--- NOTE | 2017-12-10 09:58 | Surgery Progress Note ---
Surgery Progress Note Date of Service Dec 10, 2017. Subjective + bowel movement (liquid yesterday), + flatus, + diet (tolerating clear liquids) , No nausea, No vomiting Feels better today Objective Vital Signs: Date Time Temp Pulse Resp B/P (MAP) Pulse Ox O2 Delivery O2 Flow Rate FiO2 12/10/17 07:31 37.0 73 16 143/74 (97) 92 Room Air 12/09/17 23:45 Room Air 12/09/17 23:15 36.8 73 18 148/90 (109) 98 Room Air 12/09/17 15:35 95 Room Air 12/09/17 15:26 36.7 79 17 125/73 (90) 95 Room Air Abdomen: non tender, non distended, soft Laboratory Results: Results Past 24 Hours Test 12/10/17 06:26 Range/Units White Blood Count 5.40 4.8-10.8 K/uL Red Blood Count 4.35 4.7-6.1 M/uL Hemoglobin 13.8 14.0-18.0 g/dL Hematocrit 39.4 42-52 % Mean Corpuscular Volume 90.6 80-100 fL Mean Corpuscular Hemoglobin 31.7 25-34 pg Mean Corpuscular Hemoglobin Concent 35.0 32-36 g/dl Platelet Count 181 130-400 K/uL Mean Platelet Volume 10.5 7.4-10.4 fL Neutrophils (%) (Auto) 49.9 % Lymphocytes (%) (Auto) 29.3 % Monocytes (%) (Auto) 15.9 % Eosinophils (%) (Auto) 4.3 % Basophils (%) (Auto) 0.6 % Neutrophils # (Auto) 2.70 1.4-6.5 K/uL Lymphocytes # (Auto) 1.58 1.2-3.4 K/uL Monocytes # (Auto) 0.86 0.11-0.59 K/uL Eosinophils # (Auto) 0.23 0-0.5 K/uL Basophils # (Auto) 0.03 0-0.2 K/uL RDW Standard Deviation 45.2 36.4-46.3 fL RDW Coefficient of Variation 13.6 11.5-14.5 % Immature Granulocyte % (Auto) 0.0 % Immature Granulocyte # (Auto) 0.00 0.00-0.02 K/uL Sodium Level 139 136-145 mmol/L Potassium Level 3.3 3.5-5.1 mmol/L Chloride Level 109 98-107 mmol/L Carbon Dioxide Level 22 21-32 mmol/L Anion Gap 8.0 3-11 mmol/L Blood Urea Nitrogen 14 7-18 mg/dl Creatinine 0.76 0.60-1.40 mg/dl Est Creatinine Clear Calc Drug Dose 112.2 ml/min Estimated GFR () 111.7 Estimated GFR (Non- 96.4 BUN/Creatinine Ratio 18.9 10-20 Random Glucose 84 70-99 mg/dl Calcium Level 8.4 8.5-10.1 mg/dl Magnesium Level 1.7 1.8-2.4 mg/dl Assessment & Plan Looks better today, doubt SBO at this time Doubt bowel obstruction Increase diet today if tolerates clears for lunch
[2017-12-10] MEDS ORDERED: PIPERACILL/TAZOBAC CONSULT ACTIVE PRN (13:15)
--- NOTE | 2017-12-10 13:19 | Hospitalist Progress Note ---
Hospitalist Progress Note Date of Service Dec 10, 2017. Subjective Pt evaluation today including: conversation w/ patient, physical exam, chart review, lab review, review of inpatient medication list Voiding: no voiding problems Mr. Kimball feels much better today. No nausea or vomiting, tolerated clear liquid breakfast. ROS Constitutional: no chills, aches, sweats or fever Respiratory: no sob,cough, sputum, or wheezing Cardiac: no chest pain, palpitations, edema, orthopnea or lightheadedness GI: no abdominal pain, nausea, vomiting, diarrhea or constipation : no dysuria or hesitancy Extremities: no joint pain or weakness Skin: no rash All other systems reviewed and negative Medications Medications Administered Medications (Trade) Dose Ordered Sig/Anjel Route Start Time Stop Time Status Last Admin Dose Admin Ondansetron HCl (Zofran Inj) 4 mg STK-MED ONCE .ROUTE 12/08/17 21:06 12/08/17 21:07 DC 12/08/17 21:09 4 MG Sodium Chloride 1,000 ml @ 999 mls/hr Q1H1M STAT IV 12/08/17 21:21 12/08/17 22:21 DC 12/08/17 21:45 999 MLS/HR Ondansetron HCl (Zofran Inj) 4 mg NOW STAT IV 12/08/17 22:37 12/08/17 22:38 DC 12/08/17 22:48 4 MG Sodium Chloride 1,000 ml @ 999 mls/hr Q1H1M STAT IV 12/08/17 22:38 12/08/17 23:38 DC 12/08/17 22:48 999 MLS/HR Heparin Sodium (Porcine) (Heparin Sq 5000 Unit/0.5ml) 5,000 unit Q8H SQ 12/09/17 06:00 01/08/18 05:59 12/10/17 05:38 5,000 UNIT Ondansetron HCl (Zofran Inj) 4 mg Q6H PRN IV 12/09/17 01:15 01/08/18 01:14 12/09/17 10:48 4 MG Sodium Chloride 1,000 ml @ 100 mls/hr Q10H IV 12/09/17 03:00 01/08/18 02:59 12/10/17 08:41 100 MLS/HR Budesonide/ Formoterol Fumarate (Symbicort 80/ 4.5 Inh) 3 puffs DAILY INH 12/09/17 09:00 01/08/18 08:59 12/10/17 09:06 3 PUFFS Carvedilol (Coreg Tab) 6.25 mg QAM PO 12/09/17 09:00 01/08/18 08:59 12/10/17 09:04 6.25 MG Carvedilol (Coreg Tab) 12.5 mg QPM PO 12/09/17 21:00 01/08/18 20:59 12/09/17 21:13 12.5 MG Fluticasone Propionate (Flonase Nasal [place]) 2 sprays DAILY [place] 12/09/17 09:00 01/08/18 08:59 12/10/17 09:06 2 SPRAYS Tamsulosin HCl (Flomax Cap) 0.4 mg DAILY PO 12/09/17 09:00 01/08/18 08:59 12/10/17 09:04 0.4 MG Promethazine HCl 12.5 mg/Sodium Chloride 50.5 ml @ 204 mls/hr NOW STAT IV 12/09/17 02:18 12/09/17 02:32 DC 12/09/17 02:32 204 MLS/HR Piperacillin Sod/ Tazobactam Sod 3.375 gm/Dextrose 115 ml @ 230 mls/hr NOW ONCE IV 12/09/17 05:00 12/09/17 05:29 DC 12/09/17 05:13 230 MLS/HR Piperacillin Sod/ Tazobactam Sod 3.375 gm/Dextrose 115 ml @ 28.75 mls/ hr Q8H IV 12/09/17 10:00 12/19/17 09:59 12/10/17 10:19 28.75 MLS/HR Famotidine 20 mg/ Syringe 5 ml @ 2.5 mls/min Q12H IV 12/09/17 06:00 01/08/18 05:59 12/10/17 05:38 2.5 MLS/MIN Magnesium Sulfate 1 gm/Prmx 100 ml @ 100 mls/hr NOW STAT IV 12/10/17 08:10 12/10/17 09:09 DC 12/10/17 09:09 100 MLS/HR Magnesium Oxide (Mag-Ox Tab) 400 mg BID PO 12/10/17 09:00 2/28/18 08:59 12/10/17 09:03 400 MG Potassium Chloride (Klor-Con M10) 20 meq NOW STAT PO 12/10/17 08:06 12/10/17 08:11 DC 12/10/17 09:03 20 MEQ Objective Vital Signs Date Time Temp Pulse Resp B/P (MAP) Pulse Ox O2 Delivery O2 Flow Rate FiO2 12/10/17 07:31 37.0 73 16 143/74 (97) 92 Room Air 12/10/17 07:15 Room Air 12/09/17 23:45 Room Air 12/09/17 23:15 36.8 73 18 148/90 (109) 98 Room Air 12/09/17 15:35 95 Room Air 12/09/17 15:26 36.7 79 17 125/73 (90) 95 Room Air Physical Exam Notes: General: no distress Eyes: normal inspection, PERLL Respiratory: chest non tender, clear to auscultation, normal breath sounds, no respiratory distress, no accessory muscle use Cardiac: regular rate and rhythm, no rub or gallop, no murmur, no edema, no jvd GI/: active bowel sounds, no abd pain or tenderness, soft, non distended Extremities: normal range of motion, normal strength, non tender Neuro/Psych: alert and oriented x 3, normal mood and affect Skin: normal color, dry Laboratory Results Last 24 Hours Test 12/10/17 06:26 White Blood Count 5.40 K/uL Red Blood Count 4.35 M/uL Hemoglobin 13.8 g/dL Hematocrit 39.4 % Mean Corpuscular Volume 90.6 fL Mean Corpuscular Hemoglobin 31.7 pg Mean Corpuscular Hemoglobin Concent 35.0 g/dl Platelet Count 181 K/uL Mean Platelet Volume 10.5 fL Neutrophils (%) (Auto) 49.9 % Lymphocytes (%) (Auto) 29.3 % Monocytes (%) (Auto) 15.9 % Eosinophils (%) (Auto) 4.3 % Basophils (%) (Auto) 0.6 % Neutrophils # (Auto) 2.70 K/uL Lymphocytes # (Auto) 1.58 K/uL Monocytes # (Auto) 0.86 K/uL Eosinophils # (Auto) 0.23 K/uL Basophils # (Auto) 0.03 K/uL RDW Standard Deviation 45.2 fL RDW Coefficient of Variation 13.6 % Immature Granulocyte % (Auto) 0.0 % Immature Granulocyte # (Auto) 0.00 K/uL Sodium Level 139 mmol/L Potassium Level 3.3 mmol/L Chloride Level 109 mmol/L Carbon Dioxide Level 22 mmol/L Anion Gap 8.0 mmol/L Blood Urea Nitrogen 14 mg/dl Creatinine 0.76 mg/dl Est Creatinine Clear Calc Drug Dose 112.2 ml/min Estimated GFR () 111.7 Estimated GFR (Non- 96.4 BUN/Creatinine Ratio 18.9 Random Glucose 84 mg/dl Calcium Level 8.4 mg/dl Magnesium Level 1.7 mg/dl Assessment and Plan 62-year-old male with past medical history of coronary artery disease status post 9 stents, PE, GERD, asthma, diverticulosis presented to the ER with complaints of persistent nausea, vomiting and abdominal distention. Abdominal distention secondary to small bowel obstruction vs viral infection: - KUB and CT abdomen and pelvis suggestive of small bowel obstruction - surgery feels that SBO is unlikely, possibly secondary to viral illness instead - Advance diet to full liquid, tolerated clear breakfast - Zofran as needed for nausea/vomiting and morphine as needed for pain - has not required any in 24 hours - normal bowel sounds today - encouraged him to ambulate in the halls - preliminary stool cultures negative, will continue abx until tomorrow morning and dc Zosyn if cultures still negative Renal insufficiency: - Likely secondary to dehydration from vomiting, diarrhea and decreased by mouth intake - Creatinine elevated at 2.4 on admission, 0.76 today - discontinue IV fluids as patient is taking po and kidney function wnl Coronary artery disease status post stents - Continue Coreg, restarted ASA and Plavix as surgery does not appear to be necessary Asthma/COPD : -Continue Symbicort Recurrent sinusitis: - Continue Flonase and Singulair
--- NOTE | 2017-12-10 14:44 | Discharge Instructions ---
Discharge Instructions Date of Service Dec 10, 2017. Admission Reason for Admission: Small Bowel Obstruction Discharge Discharge Diagnosis / Problem: Viral gastritis Discharge Goals Goal(s): Improve function, Increase independence Activity Recommendations Activity Limitations: resume your previous activity . Instructions / Follow-Up Instructions / Follow-Up Please keep your appointment with Dr. Bruce December 19 at 2:40 pm. Advance your diet as tolerated. Please have your blood work drawn tomorrow with results to Dr. Bruce. As a reminder, I see that you have Viagra and nitro both prescribed to you, please remember that you cannot take both of these medications on the same day as they could drop your blood pressure very low very quickly. Current Hospital Diet Patient's current hospital diet: Full Liquid Diet Discharge Diet Recommended Diet: Low Fiber Diet, Low Fat Diet Procedures Procedures Performed: Abd/pelvis CT Chest/Abd xray Pending Studies Studies pending at discharge: no Medical Emergencies . Who to Call and When: Medical Emergencies: If at any time you feel your situation is an emergency, please call 911 immediately. . Non-Emergent Contact Non-Emergency issues call your: Primary Care Provider Call Non-Emergent contact if: you have a fever, your pain is not controlled . . "Provider Documentation" section prepared by Jayla Echeverria. . VTE Core Measure Inpt VTE Proph given/why not?: Unfractionated heparin SQ
--- NOTE | 2017-12-10 14:53 | Discharge Summary ---
Discharge Summary Date of Service Dec 10, 2017. Discharge Summary Admission Date: Dec 09, 2017 at 01:07 Discharge Date: Dec 11, 2017 Discharge Disposition: Home Principal Diagnosis: Viral gastritis Immunizations: Have You Had Influenza Vaccine: Yes History of Tetanus Vaccine?: Yes History of Pneumococcal: Yes History of Hepatitis B Vaccine: No Procedures: CT OF THE ABDOMEN AND PELVIS WITHOUT CONTRAST CLINICAL HISTORY: Nausea, vomiting, abdominal pain and diarrhea. COMPARISON STUDY: CT of the abdomen and pelvis September 30, 2015. TECHNIQUE: Axial images of the abdomen and pelvis were obtained without IV contrast. Images were reviewed in the axial, sagittal, and coronal planes. A dose lowering technique was utilized adhering to the principles of ALARA. FINDINGS: The heart is moderately enlarged. Left basilar opacity suggests atelectasis. No pneumatosis, free air or portal venous gas is present. Unenhanced images of liver, spleen, adrenal glands and pancreas are unremarkable. There is no biliary or pancreatic ductal dilatation. Several water attenuation bilateral renal lesions are shown to reflect cysts on prior contrast enhanced study of September 30, 2015. The stomach is moderately distended and fluid-filled as is the proximal to mid small bowel. There is a probable transition point within the right lower quadrant shown on image 299. This is within the ileum. The distal small bowel is decompressed. The findings suggest a partial small bowel obstruction. There is colonic diverticulosis without evidence for acute diverticulitis although images of the pelvis are degraded by streak artifact from bilateral hip arthroplasties. There is no lymphadenopathy. Several suspected ingested tablets are noted. IMPRESSION: 1. Moderate dilatation of the stomach and proximal to mid small bowel with decompressed distal small bowel and suspected transition point within the right lower quadrant within the ileum. The findings suggest a partial small bowel obstruction. No pneumatosis, free air or portal venous gas. 2. Multiple bilateral renal cysts. 3. Colonic diverticulosis without evidence for acute diverticulitis. CHEST AND ABDOMEN 2 VIEWS HISTORY: Nausea. Vomiting. Diarrhea. COMPARISON: Chest 11/24/2016. Abdomen and pelvis CT 09/30/2015. FINDINGS: Stable left basilar linear densities suggesting scarring or subsegmental atelectasis. The lungs are otherwise clear. The heart is normal in size. No pleural effusions. No pneumothorax. No renal or ureteral calculi. Postoperative changes within the bilateral hips. There are 2 similar-appearing round densities within the right mid abdomen and right lower quadrant. This could be due to medication ingestion. There is a small amount of residual barium within the right colon demonstrating a few diverticula. A few mildly dilated gas-filled loops of small bowel are seen within the abdomen. There is also gas within the colon. Small bowel loops measure up to 4.3 cm in diameter. Mildly distended gas-filled stomach. No pneumoperitoneum. No pneumatosis. IMPRESSION: 1. No acute process within the chest. 2. Mild distended gas-filled loops of small bowel within the abdomen. There is also gas within the nondistended colon. Therefore, these findings could represent a partial small bowel obstruction or ileus. Medication Reconciliation Continued Medications: Albuterol Hfa (Ventolin Hfa) 200 Puffs/72199 Mcg Aers 2 PUFFS INH Q6H PRN for SOB/Wheezing, INHALER Aspirin (Aspirin Ec) 81 Mg Tab 81 MG PO DAILY Budesonide/Formoterol Fumarate (Symbicort 80/4.5 Inhaler) 120 Puffs/ Aero 3 PUFFS INH DAILY, INHALER Carvedilol (Coreg) 6.25 Mg Tab 6.25 MG PO QAM, TAB Carvedilol (Coreg) 6.25 Mg Tab 12.5 MG PO QPM, TAB Clopidogrel (Plavix) 75 Mg Tab 75 MG PO QPM Docusate Sodium (Colace) 100 Mg Cap 100 MG PO BID PRN for Constipation, CAP Fluticasone Propionate (Fluticasone Propionate) 120 Sprays/6000 Mcg [place] 2 SPRAYS [place] DAILY Methocarbamol (Robaxin) 750 Mg Tab 750 MG PO BID PRN for Muscle Spasm, TAB Montelukast Sod (Montelukast Sodium) 10 Mg Tab 10 MG PO DAILY Multivitamin (Multivitamin) Tab 1 TAB PO DAILY Nitroglycerin (Nitrostat) 0.3 Mg Tab 0.3 MG UT UD PRN for Chest Pain PLACE ONE TABLET UNDER THE TONGUE EVERY 5 MINUTES FOR UP TO 3 DOSES IF NEEDED FOR CHEST PAIN Pantoprazole (Pantoprazole Sodium) 40 Mg Tab 40 MG PO DAILY Polyethylene Glycol 3350 (Miralax) 1 Pow Pow 17 GM PO BID PRN for Constipation, GM Ramipril (Ramipril) 5 Mg Cap 5 MG PO DAILY Ranitidine (Zantac) 150 Mg Tab 150 MG PO QPM, TAB Rosuvastatin Calcium (Rosuvastatin Calcium) 20 Mg Tab 20 MG PO QPM Sildenafil Citrate (Viagra) 100 Mg Tab 100 MG PO UD PRN for When Needed, TAB Tamsulosin Hcl (Flomax) 0.4 Mg Cap 0.4 MG PO DAILY, CAP TAKE THIS MEDICATION ONCE DAILY 30 MINUTES AFTER EVENING MEAL Discontinued Medications: Esomeprazole Magnesium (Nexium) 40 Mg Capcr 40 MG PO DAILY [Vicodin 5/500MG] () 5/500 MG TAB 1.5 TABS PO BID PRN for Pain Discharge Exam ROS Constitutional: no chills, aches, sweats or fever Respiratory: no sob,cough, sputum, or wheezing Cardiac: no chest pain, palpitations, edema, orthopnea or lightheadedness GI: no abdominal pain, nausea, vomiting, diarrhea or constipation : no dysuria or hesitancy Extremities: no joint pain or weakness Skin: no rash All other systems reviewed and negative PE General: no distress Eyes: normal inspection, PERLL Respiratory: chest non tender, clear to auscultation, normal breath sounds, no respiratory distress, no accessory muscle use Cardiac: regular rate and rhythm, no rub or gallop, no murmur, no edema, no jvd GI/: active bowel sounds, no abd pain or tenderness, soft, non distended Extremities: normal range of motion, normal strength, non tender Neuro/Psych: alert and oriented x 3, normal mood and affect Skin: normal color, dry Hospital Course 62-year-old male with past medical history of coronary artery disease status post 9 stents, PE, GERD, asthma, diverticulosis presented to the ER with complaints of persistent nausea, vomiting and abdominal distention. Abdominal distention secondary to small bowel obstruction vs viral infection: - KUB and CT abdomen and pelvis suggestive of small bowel obstruction - surgery feels that SBO is unlikely, possibly secondary to viral illness instead - Advance diet to full liquid, tolerated clear breakfast - Zofran as needed for nausea/vomiting and morphine as needed for pain - has not required any in 48 hours - normal bowel sounds today - ambulating halls - stool cultures negative - dc zosyn Renal insufficiency: - Likely secondary to dehydration from vomiting, diarrhea and decreased by mouth intake - Creatinine elevated at 2.4 on admission, trended down - discontinue IV fluids as patient is taking po and kidney function wnl Hypokalemia - replaced Coronary artery disease status post stents - Continue Coreg, restarted ASA and Plavix as surgery does not appear to be necessary Asthma/COPD : -Continue Symbicort Recurrent sinusitis: - Continue Flonase and Singulair Total Time Spent: Greater than 30 minutes This includes examination of the patient, discharge planning, medication reconciliation, and communication with other providers. Discharge Instructions Please refer to the electronic Patient Visit Report (Discharge Instructions) for additional information. Follow-Up F/u with Dr. Bruce December 19 PRP 12/12 Additional Copies To ,Leroy Mak M.D.
[2017-12-10 15:28] VITALS: BP 153/81; PULSE 72; TEMP 36.5; O2SAT 96
[2017-12-10] MEDS: PIPERACILL/TAZOBAC IV 3.375 GM in DEXTROSE 5% 100ML 100 ML IV SCH (18:29)
[2017-12-10] MEDS: ACETAMINOPHEN 325 MG TAB PO PRN (19:54)
[2017-12-10] MEDS: FAMOTIDINE 20 MG TAB PO SCH (20:53)
[2017-12-10 20:56] VITALS: BP 150/84; PULSE 72
[2017-12-10 23:05] VITALS: BP 150/78; PULSE 62; TEMP 37; O2SAT 97
[2017-12-11] MEDS: ACETAMINOPHEN 325 MG TAB PO PRN (00:39)
[2017-12-11] MEDS: PIPERACILL/TAZOBAC IV 3.375 GM in DEXTROSE 5% 100ML 100 ML IV SCH ×2 (01:58→09:42)
[2017-12-11] MEDS: HEPARIN SOD 5000 UNIT/0.5 ML CARP SQ SCH (06:00)
[2017-12-11 07:42] VITALS: BP 128/65; PULSE 67; TEMP 36.7; O2SAT 91
[2017-12-11 08:14] LABS: CALCIUM 8.5 mg/dl (8.5-10.1); CREATININE 0.72 mg/dl (0.60-1.40); POTASSIUM 3.1 mmol/L (3.5-5.1)
[2017-12-11] MEDS ORDERED: ASPIRIN 81 MG ECTAB PO SCH (09:00)
[2017-12-11] MEDS ORDERED: CLOPIDOGREL BISULFATE 75 MG TAB PO SCH (09:00)
[2017-12-11] MEDS: FLUTICASONE PROPIONATE NA SPR 16 GM BTL NAE SCH (09:36)
[2017-12-11] MEDS: BUDESONIDE/FORMOTEROL FUMARATE 80/4.5 60 PUFFS/INHALER INH SCH (09:36)
[2017-12-11] MEDS: CARVEDILOL 6.25 MG TAB PO SCH (09:39)
[2017-12-11] MEDS: MAGNESIUM OXIDE 400 MG TAB PO SCH (09:40)
[2017-12-11] MEDS: TAMSULOSIN HCL 0.4 MG CAP PO SCH (09:40)
[2017-12-11] MEDS: FAMOTIDINE 20 MG TAB PO SCH (09:41)
[2017-12-11] MEDS ORDERED: POTASSIUM CHLORIDE 20 MEQ TABCR PO ONE ×2 (10:00→11:00)
[2017-12-11] MEDS ORDERED: ONDA4TAB65 PO (12:26)
[2017-12-11 12:27] VITALS: BP 128/65; PULSE 67; TEMP 36.7; O2SAT 91
--- NOTE | 2017-12-11 13:42 | Surgery Progress Note ---
Surgery Progress Note Date of Service Dec 11, 2017. Subjective Post OP Day: HD # 2 + feeling well, + bowel movement, + flatus, + pain controlled (has not needed any narcotics), + diet (tolerated full liquids last evening was supposed to have regular diet this morning), No complaints, No chest pain, No nausea, No vomiting Objective Vital Signs: Date Time Temp Pulse Resp B/P (MAP) Pulse Ox O2 Delivery O2 Flow Rate FiO2 12/11/17 12:27 36.7 67 18 91 Room Air 12/11/17 08:11 Room Air 12/11/17 07:42 36.7 67 18 128/65 (86) 91 Room Air 12/11/17 00:36 Room Air 12/10/17 23:05 37.0 62 16 150/78 (102) 97 Room Air 12/10/17 20:56 72 150/84 (106) 12/10/17 16:15 Room Air 12/10/17 15:28 36.5 72 19 153/81 (105) 96 Room Air General Appearance: WD/WN, no apparent distress Head: normocephalic, atraumatic Neck: trachea midline Respiratory/Chest: no respiratory distress, no accessory muscle use Abdomen: normal bowel sounds, non tender, non distended, soft, no organomegaly , no pulsatile mass Laboratory Results: Results Past 24 Hours Test 12/11/17 06:42 Range/Units Sodium Level 139 136-145 mmol/L Potassium Level 3.1 3.5-5.1 mmol/L Chloride Level 107 98-107 mmol/L Carbon Dioxide Level 25 21-32 mmol/L Anion Gap 8.0 3-11 mmol/L Blood Urea Nitrogen 6 7-18 mg/dl Creatinine 0.72 0.60-1.40 mg/dl Est Creatinine Clear Calc Drug Dose 118.5 ml/min Estimated GFR () 114.3 Estimated GFR (Non- 98.6 BUN/Creatinine Ratio 8.5 10-20 Random Glucose 92 70-99 mg/dl Calcium Level 8.5 8.5-10.1 mg/dl Assessment & Plan Viral gastroenteritis vs resolving SBO -vitals stable, afebrile overnight - nausea and vomiting resolved - liquids bowel movements and flatus, decreased in frequency - tolerating diet - no abdominal pain Plan: From surgical standpoint patient may be discharged. Believe he had more of gastroenteritis than SBO given profuse diarrhea. Most likely developed Ileus secondary to gastroenteritis. Will advance diet to regular diet for breakfast Await medical evaluation for discharge Discussed with Dr. Kelly who agrees with above.
== END 2017-12-11 13:15 | disposition home or self-care (01) | DRG 392 ==
LOC: C.EDB 20:36 → C.MSW 12-09 01:07 → ENRESERV 12-09 01:15
PROVIDERS: ADMIT Family Medicine; ATTEND Hospitalist
DX: A08.4 Viral intestinal infection, unspecified (principal); K56.609 Unspecified intestinal obstruction, unspecified as to partial versus complete obstruction; E87.6 Hypokalemia; K21.9 Gastro-esophageal reflux disease without esophagitis; I25.10 Atherosclerotic heart disease of native coronary artery without angina pectoris; E78.5 Hyperlipidemia, unspecified; I25.2 Old myocardial infarction; J44.9 Chronic obstructive pulmonary disease, unspecified; J45.909 Unspecified asthma, uncomplicated; Z79.02 Long term (current) use of antithrombotics/antiplatelets; Z79.82 Long term (current) use of aspirin; Z79.899 Other long term (current) drug therapy; Z95.5 Presence of coronary angioplasty implant and graft; Z88.2 Allergy status to sulfonamides

== ENCOUNTER → 2017-12-14 | Outpatient (CLI) | payer OTHER ==
[~2017-12-14] MED LIST changes: -ALBUAER2 INH; -ALT5 PO; +ASPI81TA28 PO; -CLC100 PO; -CPR500 PO; +DOCU-94 PO; -DUTA0.5C PO; -FLNIN NAE; +FLNIN/ NAE; -LUTE6TAB PO; -MRLP17 PO; -MTR500 PO; -NXM/40 PO; +ONDA4TAB65 PO; +PANT40TA2 PO; +POLY335019 PO; +RAMI5CAP PO; -ROSU20TA PO; +ROSU20TA33 PO; +TAMS0.4C38 PO; -TAMS0.4C59 PO; +VNTHFA/IN INH
[2017-12-14 16:57] LABS: BLOOD UREA NITROGEN 9 mg/dl (7-18); CALCIUM 8.8 mg/dl (8.5-10.1); CARBON DIOXIDE 29 mmol/L (21-32); CREATININE 0.83 mg/dl (0.60-1.40); GLUCOSE 84 mg/dl (70-99); POTASSIUM 3.9 mmol/L (3.5-5.1); SODIUM 141 mmol/L (136-145)
== END | disposition home or self-care (01) ==
LOC: C.LABPBG 15:13
PROVIDERS: ATTEND Orthopaedic Surgery
DX: E87.6 Hypokalemia (principal); E86.0 Dehydration

== ENCOUNTER → 2018-01-03 | Outpatient (CLI) | payer OTHER ==
[~2018-01-03] MED LIST changes: +RANI150T85 PO; -ZNTT/150 PO
[2018-01-03 17:38] LABS: BASO % 0.6 %; BASO ABS # 0.05 K/uL (0-0.2); EOS % 2.7 %; EOS ABS # 0.21 K/uL (0-0.5); HEMATOCRIT 41.4 % (42-52); HEMOGLOBIN 14.2 g/dL (14.0-18.0); IG# 0.01 K/uL (0.00-0.02); LYMPH % 18.2 %; LYMPH ABS # 1.44 K/uL (1.2-3.4); MEAN CELL VOLUME 91.4 fL (80-100); MEAN CORPUSCULAR HEMOGLOBIN 31.3 pg (25-34); MEAN CORPUSCULAR HGB CONC 34.3 g/dl (32-36); MEAN PLATELET VOLUME 10.1 fL (7.4-10.4); MONO % 10.8 %; MONO ABS # 0.85 K/uL (0.11-0.59); NEUT % 67.6 %; NEUT ABS # 5.34 K/uL (1.4-6.5); PLATELET COUNT 263 K/uL (130-400); RED CELL DISTRIBUTION WIDTH CV 13.6 % (11.5-14.5); RED CELL DISTRIBUTION WIDTH SD 44.7 fL (36.4-46.3)
== END | disposition home or self-care (01) ==
LOC: C.LABPBG 15:54
PROVIDERS: ATTEND Urology
DX: N40.1 Benign prostatic hyperplasia with lower urinary tract symptoms (principal); I10 Essential (primary) hypertension

== ENCOUNTER → 2018-01-04 | Outpatient (CLI) | payer OTHER | END | disposition home or self-care (01) | LOC: C.LAB1850 15:34 | PROVIDERS: ATTEND Internal Medicine | DX: R53.83 Other fatigue (principal) ==

== ENCOUNTER 2019-05-28 17:49 | Observation (INO) ==
--- OUTSIDE RECORDS SUMMARY | 2019-05-28 17:52 | External Medical Summary | Continuity of Care Document ---
:1955 Author Name Bhanu Beltran, Provider Address Unavailable Unavailable , Care Team Providers Name Role Phone George Beltran, [email or web address] Leroy Bruce M.D. 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) Urinary frequency (788.41) (R35.0) Dysuria (788.1) (R30.0) Acute medial meniscus tear (836.0) (S83.249A) Knee problem (719.96) (M25.9) Hypophosphatemia (275.3) (E83.39) Nausea (787.02) (R11.0) Diverticulitis of colon (562.11) (K57.32) History of diarrhea (V12.79) (Z87.898) S tatus: Resolved Nephrolithiasis (592.0) (N20.0) Split urinary stream (788.61) (R39.13) Prostatitis (601.9) (N41.9) Acute sinusitis (461.9) (J01.90) Cough (786.2) (R05) Laryngopharyngeal reflux (478.79) (K21.9) Osteoarthritis (715.90) (M19.90) Enlarged prostate with lower urinary tract symptoms (LUTS) ( 600.01) (N40.1) Enlarged prostate without lower urinary tract symptoms (luts ) (600.00) (N40.0) Nocturia (788.43) (R35.1) Enlarged prostate without lower urinary tract symptoms (luts ) (600.00) (N40.0) Benign prostatic hyperplasia with urinary obstruction (600.0 1) (N40.1) Tick bite (919.4) (W57.XXXA) Iron deficiency (280.9) (E61.1) 3-vessel CAD (414.00) (I25.10) Arthritis (716.90) (M19.90) Hypertension (401.9) (I10) Back pain, lumbosacral (724.2) (M54.5) Asthma (493.90) (J45.909) Dyslipidemia (272.4) (E78.5) Asthma, mild persistent (493.90) (J45.30) Erectile dysfunction (607.84) (N52.9) Fatigue (780.79) (R53.83) Hypomagnesemia (275.2) (E83.42) Femoral neuropathy of right lower extremity (355.2) (G57.21) History of pulmonary embolism (V12.55) (Z86.711) Status: Resolved Cath Stent Placement Right hip pain (719.45) (M25.551) Chronic sinusitis (473.9) (J32.9) Incomplete bladder emptying (788.21) (R33.9) Urinary tract infection, site unspecified (599.0) (N39.0) 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 Start: 27-Oct-2015 Refills: 0 Dicyclomine HCl - 10 MG Oral Capsule; Take one daily o ne hour before needed Devin Bruce Start: 24-Nov-2016 Quantity: 90 Refills: 3 Sildenafil Citrate 100 MG Oral Tablet; TAKE DIRECTED. Devin Bruce Start: 24-Nov-2016 Quantity: 18 Refills: 3 Tamsulosin HCl - 0.4 MG Oral Capsule; TA KE 1 CAPSULE Daily 1/2 hour after supper Devin Bruce Start: 27-Apr-2014 Quantity: 90 Refills: 3 Multi-Day Oral Tablet Start: 11-Sep-2013 Refills: 0 Vicodin TABS Refills: 0 Carvedilol 6.25 MG Oral Tablet; Take 1 t ablet in am and 1 1/2 tabs q pm per cardiology Devin Bruce Quantity: 180 Refills: 2 Rosuvastatin Calcium 20 MG Oral Tablet; TAKE 1 TABLET DAILY. Devin Bruce Quantity: 90 Refills: 3 Ramipril 5 MG Oral Capsule; TAKE 1 CAPSULE DAILY. Devin Bruce Quantity: 90 Refills: 3 Montelukast Sodium 10 MG Oral Tablet; TAKE 1 TABLET DAILY. P Devin white Quantity: 90 Refills: 3 Nitroglycerin 0.3 MG Sublingual Tablet Sublingual; TAKE D IRECTED. Refills: 0 Albuterol 90 MCG/ACT AERS; 2 PUFFS NEEDED Refills: 0 Fluticasone Propionate 50 MCG/ACT Nasal Suspension; USE 2 SPRAYS IN EACH NOSTRIL ONCE DAILY Devin Bruce 16 GM Bottle Quantity: 3 Refills: 3 Docusate Sodium 100 MG Oral Tablet; TAKE 2 TABLET Daily Refills: 0 raNITIdine HCl - 150 MG Oral Tablet Star t: 26-Sep-2013 Refills: 0 Methocarbamol 750 MG Oral Tablet; TAKE 1 TABLET TWICE DAILY. Devin Bruce Start: 04-Dec-2013 Quantity: 180 Refills: 3 valACYclovir HCl - 1 GM Oral Tablet; JOVANY E 2 TABLETS TWICE DAILY FOR 1 DAY AT FIRST SIGN OF ONSET. Devin Bruce Start: 22-Mar-2015 Quantity: 48 Refills: 3 MiraLax POWD Refills: 0 Symbicort 160-4.5 MCG/ACT Inhalation Aer osol; INHALE 2 PUFFS TWICE DAILY. RINSE MOUTH AFTER USE. DO Gerson Mondragon Start: 21-Sep-2016 Quantity: 3 10.2 GM Inhaler Refills: 3 Pantoprazole Sodium 40 MG Oral Tablet Delayed Release; Take 1 tablet daily Devin Bruce Start: 02-Dec-2018 Quantity: 90 Refills: 3 Diclofenac Sodium 50 MG Oral Tablet Delayed Release; T ranjit 1 tablet twice daily Devin Bruce Start: 04-Apr-2018 Quantity: 60 Refills: 3 Naproxen TABS Refills: 0 Plavix 75 MG Oral Tablet; TAKE 1 TABLET DAILY. Refills: 0 Procedures History of Sinus Surgery Status: Complet ed History of Hip Surgery Status: Completed History of Hernia Repair Status: Complet ed History of Cath Stent Placement Status: Completed History of Cath Stent Placement Status: Completed History of Knee Surgery Status: Complete d Cath Stent Placement Immunizations Pneumococcal polysaccharide vaccine, 23 valent On: 21-Sep-20 12 Influenza On: 01-Sep-2013 Zoster (Zostavax) On: 15-Sep-2013 Influenza On: 16-Sep-2014 Prevnar 13 Intramuscular Suspension On: 27-Nov-2015 Influenza On: 24-Aug-2016 Family History Unknown Family Member Family history of Heart Disease (V17.49) Status: Active Comments: Family History Family history of Diabetes During Status: Active Comments: Family History Family history of Hypertension (V17.49) Status: Active Comments: Family History Family history of Nephrolithiasis Status: Active Commen ts: Family History Social History - Smoking Status Unknown if ever smoked Never smoker Interventions Follow-ups/ReferralsFollow-up visit in 1 year; Done: 10 Feb 2019 Plan of Treatment Planned Observations Planned Goals not documented Results No Known Results Results not documented Encounters Appointment; Félix Vazquez M.D. 03-Feb-2019 13:45 Encounter Diagnosis: Problem not documented Appointment; Félix Vazquez M.D. 22-Jul-2018 15:00 Encounter Diagnosis: Problem not documented Appointment; Leroy Bruce M.D. 04-Apr-2018 13:20 Encounter Diagnosis: Problem not documented Appointment; Penelope Sosa CRNP 24-Jan-2018 15:00 Encounter Diagnosis: Problem not documented Appointment; Félix Vazquez M.D. 09-Jan-2018 14:00 Encounter Diagnosis: Problem not documented Appointment; Leroy Bruce M.D. 04-Jan-2018 14:00 Encounter Diagnosis: Problem not documented Appointment; Maritza Murray III, M.D. 25-Oct-2017 15:45 Encounter Diagnosis: Problem not documented Appointment; Gerson Mondragon DO 01-Oct-2017 14:00 Encounter Diagnosis: Problem not documented Appointment; Pulmonary, Funct Testing 01-Oct-2017 13:30 Encounter Diagnosis: Problem not documented Appointment; Leroy Bruce M.D. 01-Oct-2017 11:40 Encounter Diagnosis: Problem not documented Appointment; Félix Vazquez M.D. 10-Feb-2019 13:55 Encounter Diagnosis: Problem not documented
[2019-05-28] MEDS ORDERED: DiphenhydrAMINE HCL 50 MG/ML VIAL IV STA (18:16)
[2019-05-28] MEDS ORDERED: SODIUM CHLORIDE 0.9% 1000ML 1,000 ML IV ONE (18:16)
[2019-05-28 18:26] LABS: Basophils # (auto) 0.04 K/uL (0-0.2); Basophils % (auto) 0.5 %; Eosinophils # (auto) 0.15 K/uL (0-0.5); Eosinophils % (auto) 1.9 %; Hematocrit (blood only) 40.3 % (42-52); Hemoglobin 13.8 g/dL (14.0-18.0); Immature Granulocytes # (auto) 0.01 K/uL (0.00-0.02); Immature Granulocytes % (auto) 0.1 %; Lymphocytes % (auto) 16.1 %; Mean Corpuscular Hgb Conc 34.2 g/dL (32-36); Mean Corpuscular Volume 91.4 fL (80-100); Mean Platelet Volume 10.7 fL (7.4-10.4); Monocytes # (auto) 0.71 K/uL (0.11-0.59); Monocytes % (auto) 8.8 %; Neutrophils # (auto) 5.84 K/uL (1.4-6.5); Neutrophils % (auto) 72.6 %; Platelet Count 219 K/uL (130-400); RDW Coefficient of Variation 13.7 % (11.5-14.5); Red Blood Count 4.41 M/uL (4.7-6.1); White Blood Count 8.05 K/uL (4.8-10.8)
[2019-05-28] MEDS: ACETAMINOPHEN 500 MG TAB PO STA ×2 (18:34→18:40)
[2019-05-28 18:37] LABS: Partial Thromboplastin Ratio 0.9; Partial Thromboplastin Time 25.7 Seconds (21.0-31.0); Prothrombin Time 10.2 Seconds (9.0-12.0)
[2019-05-28 18:42] LABS: Albumin Level 4.1 gm/dl (3.4-5.0); BUN Creatinine Ratio 13.8 (10-20); Calcium 9.1 mg/dl (8.5-10.1); Creatinine Clr Calc Pharmacy 77.2 ml/min; Est GFR (African American) 81.2; Est GFR (Non-African American) 70.1; Magnesium 2.1 mg/dl (1.8-2.4); Potassium 3.6 mmol/L (3.5-5.1)
--- NOTE | 2019-05-28 18:58 | CT Scan Report ---
CT SCAN OF THE BRAIN WITHOUT IV CONTRAST CLINICAL HISTORY: Right-sided facial numbness. COMPARISON STUDY: CT scan of the paranasal sinuses dated 01/22/2014. TECHNIQUE: Unenhanced axial CT scan of the brain is performed from the vertex to the skull base. A d ose lowering technique was utilized adhering to the principles of ALARA. CT DOSE: 537.48 mGy.cm FINDINGS: Brain parenchyma: The brain parenchyma is normal in appearance. There is no hemorrhage, mass effect, or evidence of acute territorial ischemia by CT criteria. Chavarria-white matter differentiation is preser jefry. No extra-axial fluid collection is seen. Ventricles, sulci, cisterns: Normal in configuration. Intracranial vasculature: There is mild atherosclerotic calcification of the cavernous carotid arteri es. Calvarium: Unremarkable. Sinuses and mastoids: There is subtotal opacification of the right maxillary antrum. There is mucosal thickening and frothy secretions present throughout the ethmoid sinuses and sphenoid sinuses. There is subtotal opacification of the frontal sinuses. The mastoid air cells are well pneumatized. Orbits: The bony orbits are grossly intact. IMPRESSION: 1. There is no hemorrhage, mass effect, or evidence of acute territorial ischemia by CT criteria. 2. Findings of pansinusitis as above. Electronically signed by: Zen Stevens M.D. 05/28/2019 6:57 PM
[2019-05-28 19:03] LABS: Albumin Globulin Ratio 1.2 (0.9-2); Bilirubin,Total 0.5 mg/dl (0.2-1); Globulin 3.5 gm/dl (2.5-4.0); Total Protein 7.6 gm/dl (6.4-8.2); Troponin I 0.078 ng/ml (0-0.045)
[2019-05-28 19:20] LABS: Lyme Ab IgG w/WB Rflx Negative (Negative); Lyme Ab IgM w/WB Rflx Negative (Negative)
[2019-05-28] MEDS ORDERED: ASPIRIN 300 MG SUPP PR ONE (19:20)
[2019-05-28] MEDS ORDERED: ASPIRIN CHEW 324 MG PO STA (19:45)
[2019-05-28] MEDS ORDERED: GADOBUTROL 65ML VIAL IV PRN (20:58)
--- NOTE | 2019-05-28 21:15 | Magnetic Resonance Report ---
MRI OF THE BRAIN COMBO CLINICAL HISTORY: Right-sided numbness. Left-sided facial droop. COMPARISON STUDY: CT of the brain dated 05/28/2019. TECHNIQUE: MRI of the brain was performed utilizing various T1 and T2-weighted sequences in the axial , sagittal, and coronal planes. Contrast-enhanced sequences were acquired following the administratio n of 9 cc of Gadavist. FINDINGS: Brain parenchyma: There is age-related involutional change noting mild patchy subcortical and periven tricular microangiopathic disease. A chronic lacunar infarct is identified in the right cerebellar he misphere. There is no hemorrhage or mass effect. There is no restricted diffusion to suggest acute is chemia. No enhancing mass lesion is identified on the postcontrast images. Chavarria-white matter differen tiation is preserved. No extra-axial fluid collection is seen. The cavernous sinuses are normal as im aged. The cerebellar tonsils are normal in configuration. Ventricles, sulci, and cisterns: Normal in configuration. Pituitary and sella: Unremarkable. Intracranial vasculature: Normal flow voids are maintained at the skull base. Orbits: The bony orbits are grossly intact. Orbital contents are normal in appearance. Sinuses and mastoids: There is subtotal opacification of the right maxillary antrum and the frontal s inuses. Moderate mucosal thickening in frontal secretions are present within the sphenoid and ethmoid sinuses. The mastoid air cells are well pneumatized. Calvarium: Unremarkable. Cervical cord: Partially visualized cervical spinal cord is normal in morphology and signal intensity . IMPRESSION: 1. No acute intracranial abnormality is identified. 2. Findings of pansinusitis as above. Electronically signed by: Zen Stevens M.D. 05/28/2019 9:13 PM
[2019-05-28] MEDS ORDERED: VALACYCLOVIR HCL 500 MG TABLET PO ONE (21:29)
[2019-05-28] MEDS ORDERED: predniSONE 50 MG TAB PO STA (21:30)
[2019-05-28] MEDS ORDERED: methylPREDNISolone 50 MG in SYRINGE 0 ML IV STA (22:15)
[2019-05-28] MEDS ORDERED: ACYCLOVIR SOD 800 MG in DEXTROSE 5% 250 ML IV STA (22:20)
[2019-05-28] MEDS ORDERED: methylPREDNISolone 125 MG/2 ML VIAL ONE (22:29)
--- NOTE | 2019-05-28 23:19 | History & Physical Report ---
Date of Service May 28, 2019 Assessment & Plan (1) Numbness and tingling of right side of face: 63 y/o M Hx CAD - TX/stents, asthma/COPD, HTN, HLD, PE. The pt reports that he developed numbness on the R side of his face and blurred vision on the R earlier in the day. He described feeling like someone gave him novocaine injections. At the same time, he began to develop a stiff feeling on the L side of his face which has progressed to partial L facial paralysis. He denies fevers, a headache or neck pain. His R sided symptoms had largely resolved on arrival to the ER. An MRI with and without contrast demonstrated an old R cerebellar lacunar infarct with no acute findings. Initial labs are notable for a detectable troponin of .08. A follow-up troponin was .09. 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 He will be placed on Valacyclovir and Prednisone. 2) R numbness - I do not presently have an explanation fro this. A TIA unrelated to his L sided symptoms may be possible. Brown Sequard is likely not possible as this appear to primarily involve the facial nerve. We have admitted the pt with a TIA protocol. He will continue Plavix and Crestor and we will add ASA. MRA of the head and neck is pending. 3) CAD - elevated trop - unclear if this is chronic - he has not had related symptoms - we will obtain a 3rd trop and and echo. We can likely contact his rural sociologist AM to determine if his troponin is chronically elevated. ASA, plavix, statin provided. We will likely restart Carvedilol AM if a CVA is ruled out. 4) HTN, HLD - cont Crestor, Carvedilol. 5) History of PE - He os placed on Lovenox - he has not been treated with Eliquis since a loan PE in 2014. 6) Asthma/COPD - no evidence of exacerbation - cont prescribed inhalers. Full code - Lovenox prophylaxis Total time for this admit including review of labs, meds, imaging, records - discussion of pt and ER attending 45 min. Present on Admission?: No (2) Elevated troponin: Present on Admission?: Yes (3) Azul's palsy: Present on Admission?: Yes History of Present Illness Chief Complaint: R face numb, blurred vision, L facial paralysis. Primary Care Provider: Leroy Bruce MD 63 y/o M Hx CAD - TX/stents, asthma/COPD, HTN, HLD, PE. The pt reports that he developed numbness on the R side of his face and blurred vision on the R earlier in the day. He described feeling like someone gave him novocaine injections. At the same time, he began to develop a stiff feeling on the L side of his face which has progressed to partial L facial paralysis. He denies fevers, a headache or neck pain. His R sided symptoms had largely resolved on arrival to the ER. An MRI with and without contrast demonstrated an old R cerebellar lacunar infarct with no acute findings. Initial labs are notable for a detectable troponin of .08. A follow-up troponin was .09. PMH: 1) CAD - TX 2003, 11 caths, 9 stents 2) Asthma/COPD 3) History of PE 2014 - was on Eliquis for 6 months 4) HTN 5) HLD 6) Diverticulitis 2017 7) GERD 8) BPH 9) Sinus surgery x 3 10) Lacunar infarct - R cerebelar - incidental finding on MRI Surgical: 1) BL hip replacement with multiple revisions on R 2) Multiple BL hernia surgeries 3) L elbow 4) L carpal tunnel 5) R knee arthroscopy Social: No smoking history. Does not drink. 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 Family: Strong history of CAD Allergies Allergy/AdvReac Type Severity Reaction Status Date / Time meperidine Allergy Unknown NAUSEA AND Verified 05/28/19 19:09 VOMITING Sulfa (Sulfonamide Allergy Unknown THROAT Verified 05/28/19 19:09 Antibiotics) SWELLING tiotropium Allergy Unknown LARYNGITIS Unverified 05/28/19 19:09 AFTER INTERMEDIATE USE typhoid vaccine Allergy Unknown fevers Verified 05/28/19 19:09 Home Medications Home Medications Medication Instructions Recorded Confirmed Type C,E,zinc,copper 20-stzen7t-cst 1 cap PO DAILY 05/28/19 05/28/19 History [Ocuvite Adult 50 Plus] albuterol sulfate [Ventolin HFA] 2 puff INHALATION Q6H PRN 05/28/19 05/28/19 History aspirin 81 mg PO DAILY 05/28/19 05/28/19 History budesonide-formoterol [Symbicort] 2 puff INHALATION BID 05/28/19 05/28/19 History carvedilol 6.25 mg PO QAM 05/28/19 05/28/19 History carvedilol 9.375 mg PO QPM 05/28/19 05/28/19 History clopidogrel 75 mg PO DAILY 05/28/19 05/28/19 History coQ10 (ubiquinol) 200 mg PO DAILY 05/28/19 05/28/19 History docusate sodium 100 mg PO BID PRN 05/28/19 05/28/19 History fluticasone propionate 2 spray INTRANASAL DAILY PRN 05/28/19 05/28/19 History hydrocodone-acetaminophen 1 tab PO TID 05/28/19 05/28/19 History methocarbamol 750 mg PO BID PRN 05/28/19 05/28/19 History montelukast 10 mg PO DAILY 05/28/19 05/28/19 History multivitamin 1 tab PO DAILY 05/28/19 05/28/19 History naproxen sodium 550 mg PO BID PRN 05/28/19 05/28/19 History nitroglycerin [Nitrostat] 0.3 mg SUBLINGUAL DIRECTED PRN 05/28/19 05/28/19 History pantoprazole 40 mg PO QAM 05/28/19 05/28/19 History polyethylene glycol 3350 17 g PO DAILY PRN 05/28/19 05/28/19 History ramipril 5 mg PO DAILY 05/28/19 05/28/19 History ranitidine HCl 150 mg PO HS 05/28/19 05/28/19 History rosuvastatin 20 mg PO DAILY 05/28/19 05/28/19 History sildenafil [Viagra] 100 mg PO DIRECTED PRN 05/28/19 05/28/19 History tamsulosin [Flomax] 0.4 mg PO DAILY 05/28/19 05/28/19 History Past Med/Surg History Medical History COPD (chronic obstructive pulmonary disease) (Acute) Asthma (Acute) Diverticulitis of colon with bleeding (Chronic 05/14/13) COPD exacerbation (Acute) Hypophosphatemia (Acute) Acute pulmonary embolism (Acute) Elevated troponin (Acute) Febrile illness (Acute) Pulmonary embolism (Resolved) Heart disease Surgical History Stented coronary artery (Chronic) Family History Other No significant family history Social History Preferred Language: Irish Feels Safe at Home: Yes Smoking Status: Never smoker Review of Systems Review of Systems: Gen: Denies fevers, night sweats, rigors, fatigue, malaise, weight loss/gain ENT: Denies congestion, throat pain, hearing loss Eyes: Described blurred vision on R CV: Denies CP, palpitations Pulmonary: Denies SOB, cough, wheezing GI: Denies N/V, diarrhea, constipation Neuro: L facial, partial paralysis Musculoskeletal: Denies joint pain, inflammation Endocrine: Denies polydipsia, polyuria Skin: Denies acute rashes or ulcers Physical Exam Physical Exam: General: AAO x 3, no distress ENT: No erythema or exudates, no thrush Eyes: ALYCE, EOMI Head and neck: Normocephalic, atraumatic, No JVD, neck is supple. Chest/heart: Nontender, S1,2, RRR, no murmurs, no gallops Lungs: CTAB, no wheezing or crackles Abdomen: Nontender, nondistended, BS+ Neuro: AAO x 3, speech is clear, the L face is mostly paralyzed - he cannot smile and has difficulty closing his eyelid. He can furrow his brow slightly but not as well as on the R. There is no objective numbness on either side. There are no motor or sensory deficits below the head. Musculoskeletal: No joint inflammation, muscle tenderness, FROM Skin: No acute rashes or ulcers Extremities: No clubbing, cyanosis, edema Results & Data Vital Signs (Past 12 Hours) Vital Signs Temp Pulse Pulse Resp BP BP Pulse Ox 05/28/19 22:45 61 18 145/82 H 98 05/28/19 22:06 59 L 18 142/81 H 97 05/28/19 21:07 60 18 131/77 96 05/28/19 20:02 60 18 142/80 H 97 05/28/19 19:21 62 18 144/79 H 98 05/28/19 18:28 98 05/28/19 17:53 97.9 F 71 20 161/86 H 96 Diagnostic Findings MRI w/w/out A chronic lacunar infarct is identified in the right cerebellar hemisphere. No acute abnormalities. EKG: NSR PG Care Time/CCT Total # of Minutes Spent Total Time Spent with Patient: Total time spent is greater than 50% in coordination of care (as documented) at patient's floor/unit and/or counseling patient:
--- NOTE | 2019-05-29 00:07 | Emergency Department Note ---
Entered by Nehemias Randolph acting as a scribe for History of Present Illness General Chief complaint: Neuro Symptoms/Deficit Stated complaint: CHEST DISCOMFORT, FACIAL NUMBNESS, HEADACHE Time Seen by Provider: 05/28/19 17:59 Source: patient History of Present Illness Onset (ago): day(s) (this morning at 0900) Location: face Pain Consistency: + constant Maximum Pain Intensity: 3 Associated symptoms: + other (Positive for mild right-sided headache and a left- sided facial droop. Negative for rashes, fever, chills, numbness/weakness in the arms/legs, and speech changes.) The patient is a 63 year old male w/ PMHx of COPD, asthma, heart disease, and previous PEs who presents to the ED w/ CC of constant facial stiffness beginning this morning at 0900. The patient states that his face felt stiff this morning when he woke up at 0900. He notes that his facial stiffness is worse on the right side. He reports that his face feels like he was injected with Novocaine. He also complains of a mild right-sided headache and of a left- sided facial droop. He denies any rashes, fever, chills, numbness/weakness in the arms/legs, and speech changes. He also denies any known tick bites. The patient states that he does not have a history of previous strokes, but he notes that he has a history of heart disease, cardiac catheterizations, and he reports that he has cardiac stents. He denies any history of strokes, seizures, and migraines. Home Medications Home Medications Medication Instructions Recorded Confirmed Type C,E,zinc,copper [id number] 1 cap PO DAILY 05/28/19 05/28/19 History [Ocuvite Adult 50 Plus] albuterol sulfate [Ventolin HFA] 2 puff INHALATION Q6H PRN 05/28/19 05/28/19 History aspirin 81 mg PO DAILY 05/28/19 05/28/19 History budesonide-formoterol [Symbicort] 2 puff INHALATION BID 05/28/19 05/28/19 History carvedilol 6.25 mg PO QAM 05/28/19 05/28/19 History carvedilol 9.375 mg PO QPM 05/28/19 05/28/19 History clopidogrel 75 mg PO DAILY 05/28/19 05/28/19 History coQ10 (ubiquinol) 200 mg PO DAILY 05/28/19 05/28/19 History docusate sodium 100 mg PO BID PRN 05/28/19 05/28/19 History fluticasone propionate 2 spray INTRANASAL DAILY PRN 05/28/19 05/28/19 History hydrocodone-acetaminophen 1 tab PO TID 05/28/19 05/28/19 History methocarbamol 750 mg PO BID PRN 05/28/19 05/28/19 History montelukast 10 mg PO DAILY 05/28/19 05/28/19 History multivitamin 1 tab PO DAILY 05/28/19 05/28/19 History naproxen sodium 550 mg PO BID PRN 05/28/19 05/28/19 History nitroglycerin [Nitrostat] 0.3 mg SUBLINGUAL DIRECTED PRN 05/28/19 05/28/19 History pantoprazole 40 mg PO QAM 05/28/19 05/28/19 History polyethylene glycol 3350 17 g PO DAILY PRN 05/28/19 05/28/19 History ramipril 5 mg PO DAILY 05/28/19 05/28/19 History ranitidine HCl 150 mg PO HS 05/28/19 05/28/19 History rosuvastatin 20 mg PO DAILY 05/28/19 05/28/19 History sildenafil [Viagra] 100 mg PO DIRECTED PRN 05/28/19 05/28/19 History tamsulosin [Flomax] 0.4 mg PO DAILY 05/28/19 05/28/19 History Allergies Allergy/AdvReac Type Severity Reaction Status Date / Time meperidine Allergy Unknown NAUSEA AND Verified 05/28/19 19:09 VOMITING Sulfa (Sulfonamide Allergy Unknown THROAT Verified 05/28/19 19:09 Antibiotics) SWELLING tiotropium Allergy Unknown LARYNGITIS Unverified 05/28/19 19:09 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 Allergy Unknown fevers Verified 05/28/19 19:09 Past Med/Surg History Medical History COPD (chronic obstructive pulmonary disease) (Acute) Asthma (Acute) Diverticulitis of colon with bleeding (Chronic 05/14/13) COPD exacerbation (Acute) Hypophosphatemia (Acute) Acute pulmonary embolism (Acute) Elevated troponin (Acute) Febrile illness (Acute) Pulmonary embolism (Resolved) Heart disease Surgical History Stented coronary artery (Chronic) Family History Other No significant family history Social History Preferred Language: [place] Citizen Feels Safe at Home: Yes Smoking Status: Never smoker Review of Systems See HPI for pertinent positives & negatives. and A total of 10 systems reviewed and were otherwise negative Physical Exam Vital Signs Vital Signs - 24 hr 05/28/19 17:53 05/28/19 18:28 05/28/19 19:21 Temperature 36.6 C Temperature Source Oral Sepsis Recent Fever Within 48 Hours No Sepsis New/Unexplained Change in Mental Status No Sepsis Action Taken by Nursing No Action Required Pulse Rate 71 Pulse Rate [Apical] 62 Pulse Rhythm Regular Pulse Strength Normal Respiratory Rate 20 18 Respiratory Effort / Characteristics Non-Labored Spontaneous Non-Labored Respiratory Depth Normal Normal Respiratory Pattern Regular Blood Pressure 161/86 H Blood Pressure [Left Arm] 144/79 H Blood Pressure Mean 111 Blood Pressure Mean [Left Arm] 100 Blood Pressure Position Sitting Pulse Oximetry 96 98 98 Oxygen Delivery Method Room Air Room Air Room Air 05/28/19 20:02 05/28/19 21:07 05/28/19 22:06 Temperature Temperature Source Sepsis Recent Fever Within 48 Hours Sepsis New/Unexplained Change in Mental Status Sepsis Action Taken by Nursing Pulse Rate Pulse Rate [Apical] 60 60 59 L Pulse Rhythm Pulse Strength Respiratory Rate 18 18 18 Respiratory Effort / Characteristics Non-Labored Respiratory Depth Normal Respiratory Pattern Blood Pressure Blood Pressure [Left Arm] 142/80 H 131/77 142/81 H Blood Pressure Mean Blood Pressure Mean [Left Arm] 100 95 101 Blood Pressure Position Pulse Oximetry 97 96 97 Oxygen Delivery Method Room Air Room Air Room Air 05/28/19 22:45 Temperature Temperature Source Sepsis Recent Fever Within 48 Hours Sepsis New/Unexplained Change in Mental Status Sepsis Action Taken by Nursing Pulse Rate Pulse Rate [Apical] 61 Pulse Rhythm Pulse Strength Respiratory Rate 18 Respiratory Effort / Characteristics Non-Labored Respiratory Depth Normal Respiratory Pattern Blood Pressure Blood Pressure [Left Arm] 145/82 H Blood Pressure Mean Blood Pressure Mean [Left Arm] 103 Blood Pressure Position Pulse Oximetry 98 Oxygen Delivery Method Room Air GENERAL: Well appearing, well nourished, NAD, non-toxic. EYE EXAM: Normal conjunctiva. PERRL, no anisocoria and EOM's grossly intact w/o pain. No gaze palsy. Left eye lacrimation, no conjunctival injection. OROPHARYNX: Moist mucous membranes. Grossly normal dentition. NECK: Supple, no nuchal rigidity, no adenopathy, non-tender. No signs of meningismus. LUNGS: Clear to auscultation. Normal chest wall mechanics. HEART: NSR, no MRG. ABDOMEN: Abdomen soft, non-tender, normo-active bowel sounds, no masses, no rebound or guarding. BACK: No CVA TTP. SKIN: No rashes and no bruising. UPPER EXTREMITIES: Upper extremities are grossly normal. LOWER EXTREMITIES: No pitting edema. No calf pain. NEURO EXAM: A&O x3, cranial nerves II-XII grossly intact with the exception of a mild left sided facial droop, slightly decreased ability to raise left eyebrow and nasolabial fold as well as closing the left eye, decreased sensation trigeminal nerve on right side, normal speech, 5/5 strength throughout, no sensory deficits, good finger to nose, no pronator drift, moves all 4 extremitie s on command w/o issue. Course 1809: The patient was evaluated in room C8. A complete history and physical exam was performed. 1918: I reevaluated and updated the patient. He is feeling better. 2128: I rechecked the patient. 2152: Upon reevaluation, the patient is stable. I discussed the findings and the treatment plan with the patient. He expresses agreement and understanding. I spoke with Dr. Aranda of the [facility] Hospitalist Service. The patient will be evaluated for further management. 2244: I rediscussed the patient's case with Dr. Aranda. 2301: I discussed the patient's case with Dr. Muñoz - [facility]. He recommends treating like azul's palsy. He does not recommend further imaging at this time. Consultations Consultation #1: I reviewed the patient's case with Dr. Aranda - Hospitalist, [facility]. He will evaluate the patient for further management. 2244: I rediscussed the patient's case with Dr. Aranda. Time: 21:53 Consultation #2: I discussed the patient's case with Dr. Muñoz - Neurology [facility]. He recommends treating like azul's palsy. He does not recommend further imaging at this time. Time: 23:01 Administered Medications Gadobutrol (Gadavist 65ml) 9 ml IV ONCE PRN PRN Reason: Interaction Checking Stop: 06/01/19 20:57 Last Admin: 05/28/19 20:58 Dose: 9 ml Documented by: [id number] Discontinued Medications Acetaminophen (Tylenol) 1,000 mg PO NOW STA Stop: 05/28/19 18:17 Last Admin: 05/28/19 18:40 Dose: Not Given Documented by: [id number] Aspirin (Aspirin) 300 mg WI ONE ONE Stop: 05/28/19 19:21 Last Admin: 05/28/19 19:47 Dose: Not Given Documented by: [id number] Aspirin (Aspirin) 324 mg PO NOW STA Stop: 05/28/19 19:46 Last Admin: 05/28/19 19:53 Dose: 324 mg Documented by: [id number] Diphenhydramine HCl (Benadryl) 25 mg IV NOW STA Stop: 05/28/19 18:17 Last Admin: 05/28/19 18:37 Dose: 25 mg Documented by: [id number] Sodium Chloride (Nss 1000ml) 1,000 mls @ 999 mls/hr IV .Q1H1M ONE Stop: 05/28/19 19:16 Last Infusion: 05/28/19 19:34 Dose: 0 mls/hr Documented by: [id number] Admin: 05/28/19 18:34 Dose: 999 mls/hr Documented by: [id number] Methylprednisolone 50 mg/ (Syringe) 0.8 mls @ 1.5 mls/min IV NOW STA Stop: 05/28/19 22:16 Last Admin: 05/28/19 22:38 Dose: Not Given Documented by: [id number] Acyclovir Sodium 800 mg/ (Dextrose) 266 mls @ 250 mls/hr IV NOW STA Stop: 05/28/19 23:23 Last Admin: 05/28/19 22:38 Dose: 250 mls/hr Documented by: [id number] Methylprednisolone (Solumedrol) Confirm Administered Dose 125 mg .ROUTE .STK-MED ONE Stop: 05/28/19 22:30 Last Admin: 05/28/19 22:38 Dose: 50 mg Documented by: [id number] Prednisone (Prednisone) 60 mg PO NOW STA Stop: 05/28/19 21:31 Last Admin: 05/28/19 22:26 Dose: Not Given Documented by: [id number] Valacyclovir HCl (Valtrex) 1,000 mg PO NOW ONE Stop: 05/28/19 21:30 Last Admin: 05/28/19 22:26 Dose: Not Given Documented by: [id number] Medical Decision Making Medical Records Attestation: I reviewed the patient's medical records. Home Medications Current Medication List: was personally reviewed by me Laboratory Data Attestation: I reviewed the patient's lab results. Result diagrams: 05/28/19 18:10 05/28/19 18:10 Lab Results 05/28/19 05/28/19 05/28/19 Range/Units 18:10 18:10 18:10 WBC 8.05 (4.8-10.8) K/uL RBC 4.41 L (4.7-6.1) M/uL Hgb 13.8 L (14.0-18.0) g/dL Hct 40.3 L (42-52) % MCV 91.4 (80-100) fL MCH 31.3 (25-34) pg MCHC 34.2 (32-36) g/dL RDW Std Deviation 45.0 (36.4-46.3) fL RDW Coeff of Balbir 13.7 (11.5-14.5) % Plt Count 219 (130-400) K/uL MPV 10.7 H (7.4-10.4) fL Immature Gran % (Auto) 0.1 % Neut % (Auto) 72.6 % Lymph % (Auto) 16.1 % Hendry % (Auto) 8.8 % Eos % (Auto) 1.9 % Baso % (Auto) 0.5 % Immature Gran # (Auto) 0.01 (0.00-0.02) K/uL Neut # (Auto) 5.84 (1.4-6.5) K/uL Lymph # (Auto) 1.30 (1.2-3.4) K/uL Hendry # (Auto) 0.71 H (0.11-0.59) K/uL Eos # (Auto) 0.15 (0-0.5) K/uL Baso # (Auto) 0.04 (0-0.2) K/uL PT 10.2 (9.0-12.0) Seconds INR 1.0 (0.9-1.1) APTT 25.7 (21.0-31.0) Seconds PTT Ratio 0.9 Sodium 140 (136-145) mmol/L Potassium 3.6 (3.5-5.1) mmol/L Chloride 108 H (98-107) mmol/L Carbon Dioxide 27 (21-32) mmol/L Anion Gap 5.0 (3-11) BUN 15 (7-18) mg/dl Creatinine 1.10 (0.6-1.4) mg/dl Est Cr Clr Drug Dosing 77.2 ml/min Est GFR ( Amer) 81.2 Est GFR (Non-Af Amer) 70.1 BUN/Creatinine Ratio 13.8 (10-20) Glucose 96 (70-99) mg/dl POC Glucose (70-99) Calcium 9.1 (8.5-10.1) mg/dl Magnesium 2.1 (1.8-2.4) mg/dl Total Bilirubin 0.5 (0.2-1) mg/dl AST 17 (15-37) U/L ALT 20 (12-78) U/L Alkaline Phosphatase 77 (45-117) U/L Troponin I 0.078 H* (0-0.045) ng/ml Total Protein 7.6 (6.4-8.2) gm/dl Albumin 4.1 (3.4-5.0) gm/dl Globulin 3.5 (2.5-4.0) gm/dl Albumin/Globulin Ratio 1.2 (0.9-2) Lyme Disease IgG Ab (Negative) Lyme Disease IgM Ab (Negative) 05/28/19 05/28/19 05/28/19 Range/Units 18:10 18:42 22:55 WBC (4.8-10.8) K/uL RBC (4.7-6.1) M/uL Hgb (14.0-18.0) g/dL Hct (42-52) % MCV (80-100) fL MCH (25-34) pg MCHC (32-36) g/dL RDW Std Deviation (36.4-46.3) fL RDW Coeff of Balbir (11.5-14.5) % Plt Count (130-400) K/uL MPV (7.4-10.4) fL Immature Gran % (Auto) % Neut % (Auto) % Lymph % (Auto) % Hendry % (Auto) % Eos % (Auto) % Baso % (Auto) % Immature Gran # (Auto) (0.00-0.02) K/uL Neut # (Auto) (1.4-6.5) K/uL Lymph # (Auto) (1.2-3.4) K/uL Hendry # (Auto) (0.11-0.59) K/uL Eos # (Auto) (0-0.5) K/uL Baso # (Auto) (0-0.2) K/uL PT (9.0-12.0) Seconds INR (0.9-1.1) APTT (21.0-31.0) Seconds PTT Ratio Sodium (136-145) mmol/L Potassium (3.5-5.1) mmol/L Chloride (98-107) mmol/L Carbon Dioxide (21-32) mmol/L Anion Gap (3-11) BUN (7-18) mg/dl Creatinine (0.6-1.4) mg/dl Est Cr Clr Drug Dosing ml/min Est GFR ( Amer) Est GFR (Non-Af Amer) BUN/Creatinine Ratio (10-20) Glucose (70-99) mg/dl POC Glucose 107 H (70-99) Calcium (8.5-10.1) mg/dl Magnesium (1.8-2.4) mg/dl Total Bilirubin (0.2-1) mg/dl AST (15-37) U/L ALT (12-78) U/L Alkaline Phosphatase (45-117) U/L Troponin I 0.090 H* (0-0.045) ng/ml Total Protein (6.4-8.2) gm/dl Albumin (3.4-5.0) gm/dl Globulin (2.5-4.0) gm/dl Albumin/Globulin Ratio (0.9-2) Lyme Disease IgG Ab Negative (Negative) Lyme Disease IgM Ab Negative (Negative) Imaging Data Radiologist's Impression: Radiology results as stated below per my review and the radiologist's interpretation: CT SCAN OF THE BRAIN WITHOUT IV CONTRAST FINDINGS: Brain parenchyma: The brain parenchyma is normal in appearance. There is no hemorrhage, mass effect, or evidence of acute territorial ischemia by CT criteria. Chavarria-white matter differentiation is preserved. No extra-axial fluid collection is seen. Ventricles, sulci, cisterns: Normal in configuration. Intracranial vasculature: There is mild atherosclerotic calcification of the c avernous carotid arteries. Calvarium: Unremarkable. Sinuses and mastoids: There is subtotal opacification of the right maxillary antrum. There is mucosal thickening and frothy secretions present throughout the ethmoid sinuses and sphenoid sinuses. There is subtotal opacification of the frontal sinuses. The mastoid air cells are well pneumatized. Orbits: The bony orbits are grossly intact. IMPRESSION: 1. There is no hemorrhage, mass effect, or evidence of acute territorial ischemia by CT criteria. 2. Findings of pansinusitis as above. Electronically signed by: Zen Stevens M.D. 05/28/2019 6:57 PM MRI OF THE BRAIN COMBO FINDINGS: Brain parenchyma: There is age-related involutional change noting mild patchy subcortical and periventricular microangiopathic disease. A chronic lacunar infarct is identified in the right cerebellar hemisphere. There is no hemorrhage or mass effect. There is no restricted diffusion to suggest acute ischemia. No enhancing mass lesion is identified on the postcontrast images. Chavarria-white matter differentiation is preserved. No extra-axial fluid collection is seen. The cavernous sinuses are normal as imaged. The cerebellar tonsils are normal in configuration. Ventricles, sulci, and cisterns: Normal in configuration. Pituitary and sella: Unremarkable. Intracranial vasculature: Normal flow voids are maintained at the skull base. Orbits: The bony orbits are grossly intact. Orbital contents are normal in appearance. Sinuses and mastoids: There is subtotal opacification of the right maxillary antrum and the frontal sinuses. Moderate mucosal thickening in frontal secretions are present within the sphenoid and ethmoid sinuses. The mastoid air cells are well pneumatized. Calvarium: Unremarkable. Cervical cord: Partially visualized cervical spinal cord is normal in morphology and signal intensity. IMPRESSION: 1. No acute intracranial abnormality is identified. 2. Findings of pansinusitis as above. Electronically signed by: Zen Stevens M.D. 05/28/2019 9:13 PM ECG Data Attestation: I personally reviewed and interpreted this ECG as follows: Indication: weakness Rate (beats per minute): 66 Rhythm: normal sinus Findings: no T-wave inversion Additional Comments: Normal intervals, normal axis, no STS changes. Blood Pressure Blood Pressure Findings: Normal blood pressure Blood Pressure Disposition: did not require urgent referral MDM Narrative and CT the brain. CT the brain does not show any acute change.The patient is a 63 year old male w/ PMHx of COPD, asthma, heart disease, and previous PEs who presents to the ED w/ CC of constant facial stiffness beginning this morning at 0900. Differential Diagnosis includes but is not limited to ischemic Stroke, hemorrhagic stroke, bells palsy, mass, neoplasm, migraine headache, seizure, farris barachnoid hemorrhage, TIA, and transient global amnesia. Patient was seen and evaluated at the bedside. The patient did present with some left-sided mild facial droop and associated right-sided facial numbness. Patient denies any recent trauma. The patient is a prior history of CAD and stents. Patient is on aspirin. Patient denies any chest pains or shortness breath. Patient did a blood work completed along with an EKG troponin. Patient has a normal white count trace anemia. The patient's kidney function is unremarkable. Troponin is detectable. I did review the patient's prior tro ponin and from 3 to 4 years ago it was elevated. Unsure as to whether or not this is a chronic or acute elevation but the patient does not appear to have EKG changes and the patient denies any chest pains or shortness of breath. Patient was given aspirin. The patient did have an MRI with and without contrast which did not show any acute abnormality. Given the concern for the right-sided facial numbness and left-sided droop which does appear to clinically be progressing as a peripheral palsy I did speak with the on-call neurologist who stated it was difficult to ascertain given the 2 different nerves may be involved. He recommended treating the Azul's palsy as a palsy with steroids and possibly antivirals. These had already been ordered. I did speak the on-call hospitalist who did agree to further evaluate and treat the patient. Patient was admitted to the medicine service. Impression & Plan Azul's palsy, Elevated troponin, Numbness and tingling of right side of face Discharge Plan Visit Data Chief Complaint: Neuro Symptoms/Deficit Stated Complaint: CHEST DISCOMFORT, FACIAL NUMBNESS, HEADACHE ED Provider: Jesus Manuel Negron Discharge Problem: Azul's palsy, Elevated troponin, Numbness and tingling of right side of face Patient Disposition: Being Evaluated by Hospitalist Forms Stand Alone Forms: My [facility] Prescriptions Prescriptions: No Action carvedilol 6.25 mg tablet 6.25 mg PO QAM RF: 0 carvedilol 6.25 mg tablet 9.375 mg PO QPM RF: 0 nitroglycerin [Nitrostat] 0.3 mg Tablet, Sublingual 0.3 mg sublingual DIRECTED PRN (Reason: Chest Pain) RF: 0 hydrocodone-acetaminophen 5-325 mg tablet 1 tab PO TID RF: 0 clopidogrel 75 mg tablet 75 mg PO DAILY RF: 0 aspirin 81 mg Tablet,Delayed Release (Dr/Ec) 81 mg PO DAILY RF: 0 sildenafil [Viagra] 100 mg tablet 100 mg PO DIRECTED PRN (Reason: Prior to [place]) RF: 0 methocarbamol 750 mg Tablet 750 mg PO BID PRN (Reason: Muscle Spasm) RF: 0 tamsulosin [Flomax] 0.4 mg capsule 0.4 mg PO DAILY RF: 0 pantoprazole 40 mg tablet,delayed release (DR/EC) 40 mg PO QAM RF: 0 naproxen sodium 550 mg tablet 550 mg PO BID PRN (Reason: Pain) RF: 0 ranitidine HCl 150 mg Tablet 150 mg PO HS RF: 0 docusate sodium 100 mg Capsule 100 mg PO BID PRN (Reason: Constipation) RF: 0 montelukast 10 mg tablet 10 mg PO DAILY RF: 0 polyethylene glycol 3350 17 gram/dose powder 17 g PO DAILY PRN (Reason: Constipation) RF: 0 albuterol sulfate [Ventolin HFA] 90 mcg/actuation Hfa Aerosol Inhaler 2 puff INHALATION Q6H PRN (Reason: Shortness Of Breath Or Wheezing) RF: 0 fluticasone propionate 50 mcg/actuation spray,suspension 2 spray intranasal DAILY PRN (Reason: Allergy Symptoms) RF: 0 ramipril 5 mg capsule 5 mg PO DAILY RF: 0 rosuvastatin 20 mg tablet 20 mg PO DAILY RF: 0 Symbicort 160-4.5 mcg/actuation HFA aerosol inhaler 2 puff inhalation BID RF: 0 multivitamin Tablet 1 tab PO DAILY RF: 0 coQ10 (ubiquinol) 200 mg Capsule 200 mg PO DAILY RF: 0 Ocuvite Adult 50 Plus 250-5-1 mg Capsule 1 cap PO DAILY RF: 0 Referrals Referrals: Leroy Bruce MD [Primary Care Provider] - The scribe's documentation has been prepared under my direction and personally reviewed by me in its entirety. I confirm that the note above accurately reflects all work, treatment, procedures, and medical decision making performed by me.
[2019-05-29] MEDS ORDERED: NON-FORMULARY MEDICATION (Sildenafil [Viagra] 100 MG) PO PRN (00:45)
[2019-05-29] MEDS ORDERED: DOCUSATE SODIUM 100 MG CAP PO PRN (00:45)
[2019-05-29] MEDS ORDERED: ALBUTEROL HFA 8 GM INHALER INH PRN (00:45)
[2019-05-29] MEDS ORDERED: NITROGLYCERIN 0.3 MG/1 TAB 100 TAB BTL SL PRN (00:45)
[2019-05-29] MEDS ORDERED: MAGNESIUM HYDROXIDE SUSP 30 ML UDC PO PRN (00:45)
[2019-05-29] MEDS ORDERED: PHARMACIST DISCHARGE MED REC CONSULT PRN (00:45)
[2019-05-29] MEDS ORDERED: ACETAMINOPHEN 325 MG TAB PO PRN (00:45)
[2019-05-29] MEDS ORDERED: ONDANSETRON INJ 2 MG/ML 2 ML VIAL IV PRN (00:45)
[2019-05-29] MEDS ORDERED: POLYETHYLENE (MIRALAX) 17 GM PACK PO PRN (00:45)
[2019-05-29] MEDS ORDERED: ALUMINUM/MAGNESIUM SUSP 30 ML UDC PO PRN (00:45)
[2019-05-29] MEDS ORDERED: D5NSS + 20MEQ KCL 20 MEQ/1,000 ML BAG IV SCH (01:30)
[2019-05-29] MEDS: ROSUVASTATIN CALCIUM 20 MG TAB PO SCH ×2 (02:34→09:23)
[2019-05-29 05:07] LABS: Basophils # (auto) 0.01 K/uL (0-0.2); Basophils % (auto) 0.1 %; Hematocrit (blood only) 38.3 % (42-52); Hemoglobin 13.1 g/dL (14.0-18.0); Immature Granulocytes # (auto) 0.01 K/uL (0.00-0.02); Immature Granulocytes % (auto) 0.1 %; Lymphocytes # (auto) 0.62 K/uL (1.2-3.4); Lymphocytes % (auto) 6.1 %; Mean Corpuscular Hgb Conc 34.2 g/dL (32-36); Mean Corpuscular Volume 92.7 fL (80-100); Mean Platelet Volume 10.8 fL (7.4-10.4); Monocytes # (auto) 0.06 K/uL (0.11-0.59); Monocytes % (auto) 0.6 %; Neutrophils # (auto) 9.45 K/uL (1.4-6.5); Neutrophils % (auto) 93.1 %; Platelet Count 207 K/uL (130-400); RDW Coefficient of Variation 13.5 % (11.5-14.5); RDW Standard Deviation 45.9 fL (36.4-46.3); Red Blood Count 4.13 M/uL (4.7-6.1); White Blood Count 10.15 K/uL (4.8-10.8)
[2019-05-29 05:36] LABS: BUN Creatinine Ratio 17.3 (10-20); Calcium 8.2 mg/dl (8.5-10.1); Creatinine Clr Calc Pharmacy 109.3 ml/min; Est GFR (African American) 109.8; Est GFR (Non-African American) 94.7
[2019-05-29 06:10] LABS: Estimated Average Glucose 111 mg/dl; Hemoglobin A1C 5.5 % (4.5-5.6)
[2019-05-29] MEDS ORDERED: ENOXAPARIN INJ 40 MG/0.4 ML SYR SQ SCH (08:00)
--- NOTE | 2019-05-29 08:36 | Neurology Consultation ---
Date of Consultation May 29, 2019 Assessment & Plan (1) Azul's palsy: This patient has the acute onset of left complete facial weakness including corner of the mouth greater than high, and forehead. 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 MRI of the brain with without contrast showed no acute abnormalities, stroke, or tumors. There was some very mild atrophy in general and some nonspecific small vessel ischemic changes of an old nature. In addition, there was some acute on chronic pansinusitis. MR angiography of the head and neck were unremarkable with no significant vessel stenoses or anomalies. On neurologic examination his only deficit objectively is the left 7th cranial nerve weakness as described above. Although he has some dysesthesias on his face (currently only on the left and not on the right) he has no decreased sensation to pin in any distribution of the 5th cranial nerves bilaterally. Patient has pansinusitis, acute on chronic, which may lead to some inflammation or irritation of the nerves. In addition he was in a pool and had some left inner ear fullness 2 days prior to the Azul's palsy which may have had a factor in originating the problem. (2) Numbness and tingling of right side of face: These were dysesthesias and they are not deficits to sensation on examination. There are already markedly improving with the residual on the left side. I have seen individuals with Azul's palsy who have dysesthesias prior to weakness. Is a little unusual in that there were bilateral dysesthesias but the right has resolved. (3) Pansinusitis: (4) Chronic cerebral ischemia: MRI shows very mild old nonspecific small vessel ischemia. He is already on daily aspirin and Plavix. He has no other risk factors such as diabetes, hypertension, or cigarette smoking. Although his blood pressure was elevated initially in the emergency room, it has been quite good since. Recommendations: 1. I am not sure this patient needs Valtrex anymore. 2. One week tapering prednisone course is reasonable. There is debate as to whether this would help the Azul's palsy or not, but catching it as early as we did, I think it is a good idea. 3. Consider antibiotic for sinusitis. 4. Protect the left eye with Lacri-Lube at night and a patch or glasses when he is outside in winter jason environment. He can use artificial tears during the day to keep his eye moist until he can fully closes eyes. I can follow up as an outpatient if desired otherwise I have no further neurologic testing or treatment recommendations to make at this time. Overall, I spent a total of 115 minutes with this case including review of records, review of MRI films, direct evaluation the patient at bedside, discussion of the case with the patient at bedside, nursing staff at bedside, and Dr. Sykes, including differential diagnosis and treatment options. History of Present Illness Reason for Consultation: Patient is a 63-year-old, who I was asked to see at the request Dr. Aranda, neurologic consultation regarding acute onset facial weakness and numbness. Requesting Physician: Dr. Aranda Attending Physician: Mateus Sykes History of Present Illness Patient has a history of COPD and asthma, coronary artery disease and a PE in March of 2015. In 2003 he had a massive [place]. He has had multiple stents placed for coronary artery disease. He has been on 81 milligram aspirin and 75 milligrams clopidogrel daily ever since. Patient had sinus surgery about 15 years ago. He continues to have fullness in his sinuses with occasional sinusitis episodes over time. On May 26 he was swimming in a swimming pool and had at least 12 hours of feeling like his left ear was full and blocked up. On May 28, he awoke at 0900 noting right greater than left facial stiffness. This persisted but as the day went on and he continued his usual activities, he felt as if the right greater than left face had Novocain, having a numbness. By 4 o'clock in the afternoon he felt that his mouth was weak and he was drooling as he tried to eat. The right eye was blurry and his left face was drooping. He had a mild right-sided headache. He had no double vision, speech problem or mentation problems. He had no weakness or numbness in arms or legs. He had no ear pain, hearing loss, or fullness in the ears. He arrived to the emergency room May 28 1753 with temperature of 36.6, pulse 71, respiratory rate 20, blood pressure 161/86, and O2 saturation 96 percent. On examination there is a mild left facial droop and decreased ability to close the left eye and raise the left eyebrow. He had decreased facial sensation on the right. CT scan of the head was unremarkable except for findings of pansinusitis. I reviewed these films. CBC showed mild anemia and glucose was 185. Calcium was 8.2 and was elevated troponins but the rest of the Chem profile was unremarkable. Total cholesterol was 113 and triglycerides were 44. Hemoglobin A1c was 5.5. MRI of the brain was unremarkable for acute changes. There were findings of pansinusitis. There was mild atrophy and old small vessel ischemic disease of scattered nonspecific nature as well. I reviewed these films. Patient was given methylprednisolone and acyclovir in the emergency room. MR angiography of the head and neck was unremarkable with no significant stenoses or vessel anomalies. I reviewed all of the MRI and MR angiography films with Dr. Elizalde in Radiology and there are no posterior fossa or brainstem abnormalities or lesions. Patient does have what looks like acute on chronic sinusitis. Currently the patient continues to have left facial weakness. He cannot close his eye well and drools out the left corner of his mouth. The dysesthesias and numbness of the right greater than left face is much better and he feels the right side is essentially resolved. There is some slight dysesthesias on the left cheek still. He denies pain or headache. He has no weakness or numbness of the limbs, balance problems, mentation issues, speech problems, or incontinence. Allergies Allergy/AdvReac Type Severity Reaction Status Date / Time meperidine Allergy Unknown NAUSEA AND Verified 05/28/19 19:09 VOMITING Sulfa (Sulfonamide Allergy Unknown THROAT Verified 05/28/19 19:09 Antibiotics) SWELLING tiotropium Allergy Unknown LARYNGITIS Unverified 05/28/19 19:09 AFTER GENDER STUDIES PROFESSOR USE typhoid vaccine Allergy Unknown fevers Verified 05/28/19 19:09 Home Medications Home Medications Medication Instructions Recorded Confirmed Type C,E,zinc,copper [id number] 1 cap PO DAILY 05/28/19 05/28/19 History [Ocuvite Adult 50 Plus] albuterol sulfate [Ventolin HFA] 2 puff INHALATION Q6H PRN 05/28/19 05/28/19 History aspirin 81 mg PO DAILY 05/28/19 05/28/19 History budesonide-formoterol [Symbicort] 2 puff INHALATION BID 05/28/19 05/28/19 History carvedilol 6.25 mg PO QAM 05/28/19 05/28/19 History carvedilol 9.375 mg PO QPM 05/28/19 05/28/19 History clopidogrel 75 mg PO DAILY 05/28/19 05/28/19 History coQ10 (ubiquinol) 200 mg PO DAILY 05/28/19 05/28/19 History docusate sodium 100 mg PO BID PRN 05/28/19 05/28/19 History fluticasone propionate 2 spray INTRANASAL DAILY PRN 05/28/19 05/28/19 History hydrocodone-acetaminophen 1 tab PO TID 05/28/19 05/28/19 History methocarbamol 750 mg PO BID PRN 05/28/19 05/28/19 History montelukast 10 mg PO DAILY 05/28/19 05/28/19 History multivitamin 1 tab PO DAILY 05/28/19 05/28/19 History naproxen sodium 550 mg PO BID PRN 05/28/19 05/28/19 History nitroglycerin [Nitrostat] 0.3 mg SUBLINGUAL DIRECTED PRN 05/28/19 05/28/19 History pantoprazole 40 mg PO QAM 05/28/19 05/28/19 History polyethylene glycol 3350 17 g PO DAILY PRN 05/28/19 05/28/19 History ramipril 5 mg PO DAILY 05/28/19 05/28/19 History ranitidine HCl 150 mg PO HS 05/28/19 05/28/19 History rosuvastatin 20 mg PO DAILY 05/28/19 05/28/19 History sildenafil [Viagra] 100 mg PO DIRECTED PRN 05/28/19 05/28/19 History tamsulosin [Flomax] 0.4 mg PO DAILY 05/28/19 05/28/19 History Patient History Medical History COPD (chronic obstructive pulmonary disease) (Acute) Asthma (Acute) Diverticulitis of colon with bleeding (Chronic 05/14/13) COPD exacerbation (Acute) Hypophosphatemia (Acute) Acute pulmonary embolism (Acute) Elevated troponin (Acute) Febrile illness (Acute) Pulmonary embolism (Resolved) Heart disease Surgical History Stented coronary artery (Chronic) H/O inguinal hernia repair History of total hip replacement Family History Father , age 65 from postprocedure complications. 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 Ear, Nose, Mouth, Throat: no ear pain, no tinnitus, no hearing loss and no dysphagia Respiratory: no cough and no dyspnea Cardiovascular: no chest pain, no dyspnea and no palpitations Gastrointestinal: no abdominal pain, no nausea and no vomiting Genitourinary: no dysuria, no urinary frequency and no urinary incontinence Musculoskeletal: no back pain, no neck pain, no radicular pain, no myalgia, no muscle weakness and no muscle atrophy Integumentary: no rash and no lesions Neurologic: + localized weakness (Left facial weakness) and + numbness (Residual left cheek numbness); no gait abnormality, no falls, no generalized weakness, no tingling, no tremor(s), no abnormal movements, no dizziness, no headache(s), no abnormal speech, no behavioral changes, no confusion and no memory loss Psychiatric: no depression, no abnormal sleep pattern, no anxiety, no difficulty concentrating, no confusion and no hallucinations Endocrine: no fatigue and no flushing Hematologic / Lymphatic: no easy bleeding and no easy bruising Allergy / Immunological: no urticaria Physical Exam Physical Exam: The patient is right-handed. The patient is awake, alert, and attentive. Speech is normal without any aphasia or dysarthria. Mentation and thought processes are intact, with full orientation and normal fund of knowledge. Attention and concentration are normal. Mood and affect are normal and appropriate. General appearance and grooming are normal. Short and long-term memory are intact. The discs are sharp with positive venous pulsations bilaterally. There are no exudates, hemorrhages, or blood vessel changes seen. Pupils are 4 mm bilaterally and reactive to light. Extraocular eye muscles are intact without nystagmus. Visual acuity and visual lobo seem normal grossly to confrontation. There are no deficits to sharp/pin in the face, in all 3 distributions of the fifth cranial nerve bilaterally. Corneal reflexes are positive bilaterally. Facial strength and movement is normal on the right but he has a dense facial droop at the corner of mouth on the left, weakness closing his left eye, and weakness with elevating his forehead on the left. Hearing seems intact grossly to voice and finger rub bilaterally. Palate moves well without asymmetry. There is normal sternocleidomastoid and trapezius (shoulder shrug) strength bilaterally. Tongue is midline with good strength bilaterally. Neck has a full range of motion without discomfort. There are no cervical bruits bilaterally. There are no cranial or ocular bruits. Heart is without murmur. There is a regular rhythm and rate. Cervical, thoracic, and lumbar spine are nontender to palpation. Gait is narrow based, with good arm swing, turns, and stance. Balance is normal eyes open or closed. With outstretched arms there is no drift. There are no resting, postural, or action tremors. There is no ataxia with finger to nose testing. There is good facility in the hands. No other abnormal involuntary movements are noted. Motor strength is 5/5 diffusely in the arms bilaterally including deltoids, biceps, triceps, brachioradialis, wrist flexors and extensors, primer waterproofing machine adjuster, and intrinsic hand muscles. Motor strength is 5/5 diffusely in the legs bilaterally including hip flexors, quadriceps, hamstrings, gastrocnemius, tibialis anterior, tibialis posterior, and Peroneii muscles bilaterally. Toe extensors are normal and there is good bulk in the extensor digitorum brevis muscles bilaterally. The limbs have good tone without rigidity or spasticity. There is no atrophy noted in the muscles. Muscle bulk is normal, there is no tenderness to palpation, no myotonia to percussion, and no fasciculations seen. Sensory examination is intact to touch and pin throughout all 4 limbs diffusely. Reflexes are 2/4 in the biceps, triceps, brachioradialis, quadriceps, and Achilles tendons bilaterally. Toes are downgoing with plantar stimulation bilaterally. Peripheral pulses are present and of normal quality distally in all 4 limbs. There is no peripheral edema noted in the limbs. Results & Data Vital Signs (Past 12 Hours) Vital Signs Temp Pulse Pulse Resp BP BP Pulse Ox 05/29/19 07:51 36.6 C 72 18 134/74 94 05/29/19 04:00 36.8 C 71 18 118/63 94 05/29/19 01:02 36.7 C 61 14 139/81 95 05/29/19 00:12 67 16 133/73 96 05/28/19 22:45 61 18 145/82 H 98 05/28/19 22:06 59 L 18 142/81 H 97 05/28/19 21:07 60 18 131/77 96 Diagnostic Findings MRI OF THE BRAIN COMBO CLINICAL HISTORY: Right-sided numbness. Left-sided facial droop. COMPARISON STUDY: CT of the brain dated 05/28/2019. TECHNIQUE: MRI of the brain was performed utilizing various T1 and T2-weighted sequences in the axial, sagittal, and coronal planes. Contrast-enhanced sequences were acquired following the administration of 9 cc of Gadavist. FINDINGS: Brain parenchyma: There is age-related involutional change noting mild patchy subcortical and periventricular microangiopathic disease. A chronic lacunar infarct is identified in the right cerebellar hemisphere. There is no hemorrhage or mass effect. There is no restricted diffusion to suggest acute ischemia. No enhancing mass lesion is identified on the postcontrast images. Chavarria-white matter differentiation is preserved. No extra-axial fluid collection is seen. The cavernous sinuses are normal as imaged. The cerebellar tonsils are normal in configuration. Ventricles, sulci, and cisterns: Normal in configuration. Pituitary and sella: Unremarkable. Intracranial vasculature: Normal flow voids are maintained at the skull base. Orbits: The bony orbits are grossly intact. Orbital contents are normal in appearance. Sinuses and mastoids: There is subtotal opacification of the right maxillary a ntrum and the frontal sinuses. Moderate mucosal thickening in frontal secretions are present within the sphenoid and ethmoid sinuses. The mastoid air cells are well pneumatized. Calvarium: Unremarkable. Cervical cord: Partially visualized cervical spinal cord is normal in morphology and signal intensity. IMPRESSION: 1. No acute intracranial abnormality is identified. 2. Findings of pansinusitis as above. Electronically signed by: Zen Stevens M.D. 05/28/2019 9:13 PM MR angio head wo con CLINICAL HISTORY: 63 years-old Male presenting with right-sided facial numbness, headache, dizziness, blurred vision. TECHNIQUE: MR angiography of the head was performed without the use of intravenous contrast using 3-D [id number] technique. 3-D volumetric and/or maximum intensity projection (MIP) images were subsequently reconstructed for review. IV contrast: None. COMPARISON: MR brain performed the previous day. FINDINGS: Localizer images: Unremarkable. Anterior circulation: Intracranial portions of the internal carotid arteries patent to the level of the termini. Anterior cerebral arteries patent. Middle cerebral arteries patent. Anterior communicating artery patent. Posterior circulation: Right dominant vertebral artery. Intradural portions of the vertebral arteries patent. Posterior inferior cerebellar arteries patent. Basilar artery patent. Anterior inferior cerebellar arteries poorly visualized. Superior cerebellar arteries patent. Posterior cerebral arteries patent. Posterior communicating arteries patent. IMPRESSION: 1. No significant stenosis, aneurysm, or focal vessel occlusion. Electronically signed by: Garfield Francis M.D. 05/29/2019 8:46 AM MR angio neck wo/w con HISTORY: Mental status change tia TECHNIQUE: Multiaxial CT angiography of the neck was performed IV contrast: 9 cc All measurements were calculated based on NASCET criteria. Maximum intensity projection images were also obtained. A dose lowering technique was utilized adhering to the principles of ALARA. COMPARISON STUDY: None. FINDINGS: The aortic arch and proximal great vessels are widely patent. There is no significant stenosis, occlusion, or dissection identified within the bilateral common carotid, internal carotid, or vertebral arteries. IMPRESSION: 1. No significant stenosis, occlusion, or dissection identified within the carotid or vertebral arteries. 2. Mild image compromise due to patient motion. The above report was generated using voice recognition software. It may contain grammatical, syntax or spelling errors. Electronically signed by: Aime Mcfarlane M.D. 05/29/2019 8:51 AM
[2019-05-29] MEDS ORDERED: GADOBUTROL 65ML VIAL IV PRN (08:42)
--- NOTE | 2019-05-29 08:48 | Magnetic Resonance Report ---
MR angio head wo con CLINICAL HISTORY: 63 years-old Male presenting with right-sided facial numbness, headache, dizziness, blurred vision. TECHNIQUE: MR angiography of the head was performed without the use of intravenous contrast using 3-D [id number] technique. 3-D volumetric and/or maximum intensity projection (MIP) images were subse quently reconstructed for review. IV contrast: None. COMPARISON: MR brain performed the previous day. FINDINGS: Localizer images: Unremarkable. Anterior circulation: Intracranial portions of the internal carotid arteries patent to the level of t he termini. Anterior cerebral arteries patent. Middle cerebral arteries patent. Anterior communicatin g artery patent. Posterior circulation: Right dominant vertebral artery. Intradural portions of the vertebral arteries patent. Posterior inferior cerebellar arteries patent. Basilar artery patent. Anterior inferior cere bellar arteries poorly visualized. Superior cerebellar arteries patent. Posterior cerebral arteries p atent. Posterior communicating arteries patent. IMPRESSION: 1. No significant stenosis, aneurysm, or focal vessel occlusion. Electronically signed by: Garfield Francis M.D. 05/29/2019 8:46 AM
--- NOTE | 2019-05-29 08:52 | Magnetic Resonance Report ---
MR angio neck wo/w con HISTORY: Mental status change tia TECHNIQUE: Multiaxial CT angiography of the neck was performed IV contrast: 9 cc All measurements we re calculated based on NASCET criteria. Maximum intensity projection images were also obtained. A d ose lowering technique was utilized adhering to the principles of ALARA. COMPARISON STUDY: None. FINDINGS: The aortic arch and proximal great vessels are widely patent. There is no significant sten osis, occlusion, or dissection identified within the bilateral common carotid, internal carotid, or v ertebral arteries. IMPRESSION: 1. No significant stenosis, occlusion, or dissection identified within the carotid or vertebral arter ies. 2. Mild image compromise due to patient motion. The above report was generated using voice recognition software. It may contain grammatical, syntax or spelling errors. Electronically signed by: Aime Mcfarlane M.D. 05/29/2019 8:51 AM
[2019-05-29] MEDS ORDERED: PANTOprazole 40 MG TAB PO SCH (09:00)
[2019-05-29] MEDS ORDERED: VALACYCLOVIR HCL 500 MG TABLET PO SCH (09:00)
[2019-05-29] MEDS ORDERED: NON-FORMULARY MEDICATION (Coq10 (Ubiquinol) 200 MG) PO SCH (09:00)
[2019-05-29] MEDS ORDERED: MONTELUKAST SODIUM 10 MG TABLET PO SCH ×2 (09:00→21:00)
[2019-05-29] MEDS ORDERED: ENALAPRIL MALEATE 10 MG TAB PO SCH (09:00)
[2019-05-29] MEDS ORDERED: HYDROCODONE/ACETAMOPHEN 5/325MG TAB PO SCH (09:00)
[2019-05-29] MEDS ORDERED: CEROVITE ADV FORMULA TAB PO SCH (09:00)
[2019-05-29] MEDS ORDERED: CARVEDILOL 6.25 MG TAB PO SCH (09:00)
[2019-05-29] MEDS ORDERED: BUDESONIDE/FORMOTEROL FUMARATE 160/4.5 60 PUFFS/INHALER INH SCH (09:00)
[2019-05-29] MEDS ORDERED: CLOPIDOGREL BISULFATE 75 MG TAB PO SCH ×2 (09:00→21:00)
[2019-05-29] MEDS ORDERED: ASPIRIN 81 MG CHEW PO SCH (09:00)
[2019-05-29] MEDS ORDERED: predniSONE 20 MG TAB PO SCH (09:00)
[2019-05-29] MEDS ORDERED: TAMSULOSIN HCL 0.4 MG CAP PO SCH ×2 (09:00→16:30)
[2019-05-29] MEDS ORDERED: ASPIRIN 81 MG ECTAB PO SCH (09:00)
[2019-05-29] MEDS ORDERED: MULTIVITAMIN TAB PO SCH (09:00)
[2019-05-29] MEDS ORDERED: Nursing to Pharmacy Communication ONE (09:44)
--- NOTE | 2019-05-29 12:18 | Cardiology Consultation ---
Date of Consultation May 29, 2019 Assessment & Plan (1) Elevated troponin: Patient has very mild elevations in his cardiac troponin. The pattern of his troponin elevation is not consistent with a recent acute coronary syndrome. He did not present with symptoms consistent with an acute coronary syndrome or angina. He has had symptoms in the past with coronary disease. He has not had any recurrence of the symptoms recently. It is unclear whether he has some chronic elevation in his biomarkers. However, at this point I do not believe this requires any additional investigation. 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 I do not believe he presented with a concurrent coronary syndrome. There does not appear to be any specific cause of ischemia at the time of his presentation. (2) Coronary artery disease: He is on an outpatient regimen consisting of aspirin, beta-blockade, ARIA inhibition and high-dose rosuvastatin. This can be continued at the time of discharge. History of Present Illness Requesting Physician: Elevated troponinOnel Attending Physician: Mateus Sykes History of Present Illness The patient is a 63-year-old gentleman with an extensive history of coronary artery disease having previously undergone percutaneous intervention on multiple occasions. The patient presented to our facility due to symptoms of left facial palsy as well as paresthesias involving both the left and right side of the face. The patient thought he was having a cerebrovascular event. He had some difficulty focusing in one eye as well. He did not endorse symptoms of chest discomfort. He did not endorse symptoms of neck discomfort. He did not have associated breathing difficulty. In the past he has had different symptoms associated with his coronary disease. Generally speaking he has "angina" with activity when he has coronary stenoses. He describes this as a tightness or pressure sensation in the precordium that occurs with exercise. In many circumstances he will continue exercise with resolution of the symptoms. He is also had symptoms of "GERD" leading up to interventions. The patient has not had any of the symptoms recently. He has maintained a good level of activity and recently has been mowing grass with a push mower. He can perform other moderate activity without symptoms of chest discomfort, indigestion or limiting dyspnea. He is primarily limited at this time due to some difficulty with tendons in his legs. Currently he is feeling somewhat better. It seems that the paresthesias involving the right side of his face have improved. He continues to have some paresthesia involving the left side of the face. He has a left facial droop and tearing of the left eye. 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 typhoid vaccine Allergy Unknown fevers Verified 05/28/19 19:09 Home Medications Home Medications Medication Instructions Recorded Confirmed Type C,E,zinc,copper [id number] 1 cap PO DAILY 05/28/19 05/28/19 History [Ocuvite Adult 50 Plus] albuterol sulfate [Ventolin HFA] 2 puff INHALATION Q6H PRN 05/28/19 05/28/19 History aspirin 81 mg PO DAILY 05/28/19 05/28/19 History budesonide-formoterol [Symbicort] 2 puff INHALATION BID 05/28/19 05/28/19 History carvedilol 6.25 mg PO QAM 05/28/19 05/28/19 History carvedilol 9.375 mg PO QPM 05/28/19 05/28/19 History clopidogrel 75 mg PO DAILY 05/28/19 05/28/19 History coQ10 (ubiquinol) 200 mg PO DAILY 05/28/19 05/28/19 History docusate sodium 100 mg PO BID PRN 05/28/19 05/28/19 History fluticasone propionate 2 spray INTRANASAL DAILY PRN 05/28/19 05/28/19 History hydrocodone-acetaminophen 1 tab PO TID 05/28/19 05/28/19 History methocarbamol 750 mg PO BID PRN 05/28/19 05/28/19 History montelukast 10 mg PO DAILY 05/28/19 05/28/19 History multivitamin 1 tab PO DAILY 05/28/19 05/28/19 History naproxen sodium 550 mg PO BID PRN 05/28/19 05/28/19 History nitroglycerin [Nitrostat] 0.3 mg SUBLINGUAL DIRECTED PRN 05/28/19 05/28/19 History pantoprazole 40 mg PO QAM 05/28/19 05/28/19 History polyethylene glycol 3350 17 g PO DAILY PRN 05/28/19 05/28/19 History ramipril 5 mg PO DAILY 05/28/19 05/28/19 History ranitidine HCl 150 mg PO HS 05/28/19 05/28/19 History rosuvastatin 20 mg PO DAILY 05/28/19 05/28/19 History sildenafil [Viagra] 100 mg PO DIRECTED PRN 05/28/19 05/28/19 History tamsulosin [Flomax] 0.4 mg PO DAILY 05/28/19 05/28/19 History prednisone 40 mg PO DAILY 7 Days #14 tab 05/29/19 Rx white petrolatum-mineral oil 1 appln OP HS #7 gm 05/29/19 Rx [Refresh Lacri-Lube] Patient History Medical History COPD (chronic obstructive pulmonary disease) (Acute) Asthma (Acute) Diverticulitis of colon with bleeding (Chronic 05/14/13) COPD exacerbation (Acute) Hypophosphatemia (Acute) Acute pulmonary embolism (Acute) Elevated troponin (Acute) Febrile illness (Acute) Pulmonary embolism (Resolved) Heart disease Surgical History Stented coronary artery (Chronic) H/O inguinal hernia repair History of total hip replacement Family History Father , age 65 from postprocedure complications. 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 He cannot recall suffering a syncopal episode. He denied orthopnea or paroxysmal nocturnal dyspnea. He has some discomfort in his lower extremities due to his tendon disease. He denied any sense of palpitations recently. No edema in the lower extremities. Physical Exam Physical Exam: The patient is alert and oriented. Mood and affect appeared normal. He answered all questions appropriately. HEENT: Pupils are equal and reactive to light and accommodation. Extraocular movements are intact. The sclerae are anicteric. Neuro: Left facial droop. Neck: Patient's neck is supple. He has palpable carotid pulses bilaterally without bruits on auscultation. There is no evidence of jugular venous distention. The thyroid is not enlarged. Lungs: Clear to auscultation bilaterally. He has good air movement without use of accessory muscles. No rales wheezes or rhonchi. Cardiac: Heart demonstrates a regular rate and rhythm. Normal S1 and S2. No murmurs on examination. Pulses: The patient has palpable radial pulses bilaterally that are equal in intensity Extremities: There was no evidence of hypoperfusion. There is no cyanosis or clubbing. There is no edema. Skin: I did not appreciate any rashes on examination today. Results & Data Vital Signs (Past 12 Hours) Vital Signs Temp Pulse Resp BP Pulse Ox 05/29/19 11:17 70 16 133/87 05/29/19 07:51 36.6 C 72 18 134/74 94 05/29/19 04:00 36.8 C 71 18 118/63 94 05/29/19 01:02 36.7 C 61 14 139/81 95 Laboratory Results Abnormal Lab Results 05/28/19 05/28/19 05/28/19 18:10 18:10 18:10 WBC 8.05 RBC 4.41 L Hgb 13.8 L Hct 40.3 L MCV 91.4 MCH 31.3 MCHC 34.2 RDW Std Deviation 45.0 RDW Coeff of Balbir 13.7 Plt Count 219 MPV 10.7 H Immature Gran % (Auto) 0.1 Neut % (Auto) 72.6 Lymph % (Auto) 16.1 [place] % (Auto) 8.8 Eos % (Auto) 1.9 Baso % (Auto) 0.5 Immature Gran # (Auto) 0.01 Neut # (Auto) 5.84 Lymph # (Auto) 1.30 [place] # (Auto) 0.71 H Eos # (Auto) 0.15 Baso # (Auto) 0.04 PT 10.2 INR 1.0 APTT 25.7 PTT Ratio 0.9 Sodium 140 Potassium 3.6 Chloride 108 H Carbon Dioxide 27 Anion Gap 5.0 BUN 15 Creatinine 1.10 Est Cr Clr Drug Dosing 77.2 Est GFR ( Amer) 81.2 Est GFR (Non-Af Amer) 70.1 BUN/Creatinine Ratio 13.8 Glucose 96 POC Glucose Estimat Average Glucose Hemoglobin A1c Calcium 9.1 Magnesium 2.1 Total Bilirubin 0.5 AST 17 ALT 20 Alkaline Phosphatase 77 Troponin I 0.078 H* Total Protein 7.6 Albumin 4.1 Globulin 3.5 Albumin/Globulin Ratio 1.2 Triglycerides Cholesterol LDL Cholesterol, Calc VLDL Cholesterol, Calc HDL Cholesterol Cholesterol/HDL Ratio Nasal Screen MRSA (PCR) Lyme Disease IgG Ab Lyme Disease IgM Ab 05/28/19 05/28/19 05/28/19 18:10 18:42 22:55 WBC RBC Hgb Hct MCV MCH MCHC RDW Std Deviation RDW Coeff of Balbir Plt Count MPV Immature Gran % (Auto) Neut % (Auto) Lymph % (Auto) [place] % (Auto) Eos % (Auto) Baso % (Auto) Immature Gran # (Auto) Neut # (Auto) Lymph # (Auto) [place] # (Auto) Eos # (Auto) Baso # (Auto) PT INR APTT PTT Ratio Sodium Potassium Chloride Carbon Dioxide Anion Gap BUN Creatinine Est Cr Clr Drug Dosing Est GFR ( Amer) Est GFR (Non-Af Amer) BUN/Creatinine Ratio Glucose POC Glucose 107 H Estimat Average Glucose Hemoglobin A1c Calcium Magnesium Total Bilirubin AST ALT Alkaline Phosphatase Troponin I 0.090 H* Total Protein Albumin Globulin Albumin/Globulin Ratio Triglycerides Cholesterol LDL Cholesterol, Calc VLDL Cholesterol, Calc HDL Cholesterol Cholesterol/HDL Ratio Nasal Screen MRSA (PCR) Lyme Disease IgG Ab Negative Lyme Disease IgM Ab Negative 05/29/19 05/29/19 05/29/19 00:30 01:03 04:37 WBC RBC Hgb Hct MCV MCH MCHC RDW Std Deviation RDW Coeff of Balbir Plt Count MPV Immature Gran % (Auto) Neut % (Auto) Lymph % (Auto) [place] % (Auto) Eos % (Auto) Baso % (Auto) Immature Gran # (Auto) Neut # (Auto) Lymph # (Auto) [place] # (Auto) Eos # (Auto) Baso # (Auto) PT INR APTT PTT Ratio Sodium Potassium Chloride Carbon Dioxide Anion Gap BUN Creatinine Est Cr Clr Drug Dosing Est GFR ( Amer) Est GFR (Non-Af Amer) BUN/Creatinine Ratio Glucose POC Glucose 120 H Estimat Average Glucose 111 Hemoglobin A1c 5.5 Calcium Magnesium Total Bilirubin AST ALT Alkaline Phosphatase Troponin I Total Protein Albumin Globulin Albumin/Globulin Ratio Triglycerides Cholesterol LDL Cholesterol, Calc VLDL Cholesterol, Calc HDL Cholesterol Cholesterol/HDL Ratio Nasal Screen MRSA (PCR) Negative Lyme Disease IgG Ab Lyme Disease IgM Ab 05/29/19 05/29/19 05/29/19 04:37 04:37 04:37 WBC 10.15 RBC 4.13 L Hgb 13.1 L Hct 38.3 L MCV 92.7 MCH 31.7 MCHC 34.2 RDW Std Deviation 45.9 RDW Coeff of Balbir 13.5 Plt Count 207 MPV 10.8 H Immature Gran % (Auto) 0.1 Neut % (Auto) 93.1 Lymph % (Auto) 6.1 [place] % (Auto) 0.6 Eos % (Auto) 0.0 Baso % (Auto) 0.1 Immature Gran # (Auto) 0.01 Neut # (Auto) 9.45 H Lymph # (Auto) 0.62 L [place] # (Auto) 0.06 L Eos # (Auto) 0.00 Baso # (Auto) 0.01 PT INR APTT PTT Ratio Sodium 140 Potassium 4.0 Chloride 111 H Carbon Dioxide 24 Anion Gap 5.0 BUN 13 Creatinine 0.78 D Est Cr Clr Drug Dosing 109.3 Est GFR ( Amer) 109.8 Est GFR (Non-Af Amer) 94.7 BUN/Creatinine Ratio 17.3 Glucose 185 H POC Glucose Estimat Average Glucose Hemoglobin A1c Calcium 8.2 L Magnesium Total Bilirubin AST ALT Alkaline Phosphatase Troponin I 0.085 H* Total Protein Albumin Globulin Albumin/Globulin Ratio Triglycerides 44 Cholesterol 113 LDL Cholesterol, Calc 60 VLDL Cholesterol, Calc 9 HDL Cholesterol 44 Cholesterol/HDL Ratio 3 Nasal Screen MRSA (PCR) Lyme Disease IgG Ab Lyme Disease IgM Ab 05/29/19 06:05 WBC RBC Hgb Hct MCV MCH MCHC RDW Std Deviation RDW Coeff of Balbir Plt Count MPV Immature Gran % (Auto) Neut % (Auto) Lymph % (Auto) [place] % (Auto) Eos % (Auto) Baso % (Auto) Immature Gran # (Auto) Neut # (Auto) Lymph # (Auto) [place] # (Auto) Eos # (Auto) Baso # (Auto) PT INR APTT PTT Ratio Sodium Potassium Chloride Carbon Dioxide Anion Gap BUN Creatinine Est Cr Clr Drug Dosing Est GFR ( Amer) Est GFR (Non-Af Amer) BUN/Creatinine Ratio Glucose POC Glucose 167 H Estimat Average Glucose Hemoglobin A1c Calcium Magnesium Total Bilirubin AST ALT Alkaline Phosphatase Troponin I Total Protein Albumin Globulin Albumin/Globulin Ratio Triglycerides Cholesterol LDL Cholesterol, Calc VLDL Cholesterol, Calc HDL Cholesterol Cholesterol/HDL Ratio Nasal Screen MRSA (PCR) Lyme Disease IgG Ab Lyme Disease IgM Ab Diagnostic Findings I reviewed his records from [facility]. He had a an echocardiogram in 2016 demonstrating preserved LV systolic function with mild LVH and mild diastolic dysfunction. His most recent catheterization was in November 2017. No intervention was performed at that time. He had nonobst ructive disease involving the right coronary artery and LAD. He had patent stents in several territories
[2019-05-29] MEDS ORDERED: ROSUVASTATIN CALCIUM 20 MG TAB PO SCH (21:00)
--- NOTE | 2019-06-05 10:19 | Coding Query ---
A supporting diagnosis is required for the test/procedure performed on this patient in order for us to be reimbursed by the patient's insurance. Please provide a supporting diagnosis for the following test/procedure listed below next to the test name along with your signature. *If there is no additional diagnosis for this patient that would support the following test/procedure please document that below next to the test/procedure. Test(s)/Procedure(s) that require a supporting diagnosis: Neck MRA DIAGNOSIS: TIA Head MRA DIAGNOSIS: TIA Provider Signature: R Kedem Date: ____06/09/19___ Thank you Jayla Reyna Health Information Management Once completed, please kindly fax back to [phone] For questions please call [phone] VIJAYA
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
== END 2019-05-29 13:32 | disposition home or self-care (01) ==
LOC: 1E 17:49 → ED 17:49 → SUATTDRO 23:34 → 1E 05-29 00:12
DX: J44.9 Chronic obstructive pulmonary disease, unspecified; G45.9 Transient cerebral ischemic attack, unspecified; R20.0 Anesthesia of skin; R07.9 Chest pain, unspecified; I67.82 Cerebral ischemia; J32.4 Chronic pansinusitis; R51 Headache; Z79.82 Long term (current) use of aspirin; F17.200 Nicotine dependence, unspecified, uncomplicated; Z88.2 Allergy status to sulfonamides; R79.89 Other specified abnormal findings of blood chemistry; I25.10 Atherosclerotic heart disease of native coronary artery without angina pectoris; Z79.899 Other long term (current) drug therapy; Z86.711 Personal history of pulmonary embolism; G51.0 Bell's palsy